=== PATIENT | male | born 1980 | race Caucasian/White ===

== ENCOUNTER 2018-04-18 02:58 | Emergency (ER) | payer SELFPAY ==
[2018-04-18 03:00] VITALS: BP 127/89; PULSE 103; RESP 18; TEMP 36.7; O2SAT 95
[2018-04-18] MEDS: Lactated Ringers 1,000 ML 1000 ML IV (03:15)
--- NOTE | 2018-04-18 03:20 | W.ED.GENAD ---
Discharge Plan Disposition Patient Disposition: HOME Condition: Good Discharge Details Chief Complaint: Abd Prob Clinical Impression: Influenza-like illness Primary Care Provider: Jai Ashford ED Provider: Shahab Fischer Home Meds and New Rx's Prescriptions: New albuterol sulfate [Ventolin HFA] 90 mcg/actuation Hfa Aerosol Inhaler 2 puff Inhalation Q4H PRN PRNQty: 8.5 RF: 0 Continue omeprazole magnesium [Prilosec OTC] 20 MG tablet,delayed release (DR/EC) 20 mg PO DAILY RF: 0 Discharge Instructions Instructions: Albuterol (By breathing), How to Use a Metered-Dose Inhaler and a Spacer (ED) Additional Instructions: This is likely viral in nature, possibly influenza. Rest and stay hydrated. Use inhaler as directed to help with cough and wheezing. Use Motrin or Tylenol for fever and pain. Follow-up with your physician next week if not feeling better. Return to ED for increased difficulty breathing, chest pain, confusion, persistent vomiting, other concerns. Stand Alone Forms: Work Release Referrals: Jai Ashford [Primary Care Provider] - Medical Decision Making Patient presenting with fever, cough, aches and intermittent flank pain as most prominent symptoms. He is afebrile here. Saturations are reasonable but he has wheezing throughout. He does have some right CVAT but has a benign abdomen otherwise. We will place an IV and start fluids. Check labs including urinalysis. Will obtain chest x-ray as well as stone study. Toradol for discomfort. DuoNeb for wheezing. Patient feels better after fluids and meds. Laboratory studies are unremarkable. White count is normal. Urinalysis is negative. Chest x-ray negative per my review and preliminary radiology read. Stone study negative per radiology. Possible that this is influenza-like illness given the constellation of symptoms despite lack of coryza. Will discharge home with albuterol inhaler and [id number] medications for symptomatic control. Rest and drink plenty of fluids. Follow-up with primary care next week. Return to ED if any worsening symptoms. Lab Data Lab results reviewed: Yes I reviewed the patient's lab results. HPI General Mode of arrival: ambulatory. Date/Time Provider Initiated Documentation: 04/18/18 03:15. Limitations to Documentation: no limitations. Information obtained by: patient. HPI Narrative: Patient presents to ED with flank pain, fever, cough for the last few days. Patient states symptoms started Monday. He was able to work on Monday but left early Monday. He has been taking TheraFlu thinking that maybe he was coming down with the flu. He does have a cough and body aches but no runny nose. He has had chest discomfort but he thinks is from congestion more than anything. He is intermittently had some right flank and abdominal pain. This comes and goes and he cannot really describe it well. He has had some vomiting and diarrhea. He has intermittent headaches. He denies urinary symptoms - no hematuria, frequency or dysuria. He has been unable to sleep because he is uncomfortable. He knew he could not go to work this morning, given how he felt so he came in for evaluation. Related Data Home Medications Medication Instructions Recorded Confirmed omeprazole magnesium [Prilosec OTC] 20 mg PO DAILY 06/19/17 04/18/18 albuterol sulfate [Ventolin HFA] 2 puff INHALATION Q4H PRN PRN #8.5 04/18/18 gm Previous Rx's Medication Instructions Recorded albuterol sulfate [Ventolin HFA] 2 puff INHALATION Q4H PRN PRN #8.5 04/18/18 gm Allergies Allergy/AdvReac Type Severity Reaction Status Date / Time No Known Allergies Allergy Unverified 04/18/18 03:04 General Stated Complaint: Abd Prob RASHAWN: 3 Review of Systems Constitutional Reports body ache(s), Reports chills, Reports fatigue, Reports fever(s), Reports headache(s), Denies lethargy, Reports malaise, Reports poor appetite and Denies weakness Eyes Denies eye discharge and Denies eye pain ENT Denies otalgia, Denies facial pain, Reports headache(s), Denies nasal congestion, Denies nasal discharge, Denies neck pain and Denies sore throat Cardiovascular Denies chest pain, Denies syncope, Denies pedal edema, Denies edema, Denies lightheadedness, Denies radiating jaw, neck or arm pain, Denies palpitations and Reports dyspnea (intermittent) Respiratory Reports chest congestion, Reports cough and Reports dyspnea (intermittent) Gastrointestinal Reports abdominal pain, Reports diarrhea, Reports nausea and Reports vomiting Genitourinary Denies hematuria, Denies difficulty urinating, Denies dysuria, Reports flank pain, Denies urinary frequency and Denies urinary urgency Musculoskeletal Denies back pain, Denies myalgias, Denies arthralgias, Denies joint swelling, Denies neck pain and Denies numbness Integumentary/Breasts Denies erythema and Denies rash Neurologic Denies syncope, Reports headache(s), Denies focal weakness, Denies numbness and Denies weakness Endocrine Reports fatigue and Denies palpitations PFSH Medical History Asthma (Chronic) GERD (gastroesophageal reflux disease) (Chronic) Social History Smoking/Tobacco Use Status: Current every day Surgical History S/P knee surgery (Inactive) Exam Const General: cooperative, comfortable and well developed Nutritional Appearance: well nourished Orientation: alert and oriented x3 HENMT Head: normocephalic and atraumatic Mouth: mucous membranes dry Eyes Conjunctivae: conjunctivae normal Neck Neck: normal visual inspection, trachea midline and supple Resp Effort & Inspection: normal respiratory effort Auscultation: no crackles, lung sounds not diminished, no rales, no rhonchi and wheezes Cardio Rate: regular rate Rhythm: regular rhythm Heart Sounds: S1 normal and S2 normal GI Inspection: normal to inspection Palpation: soft, not firm, no guarding and nontender Back/Spine/Pelvis Back: CVA tenderness (right) Skin General skin exam: no rashes or lesions noted Neuro General: alert, oriented x3, no focal motor deficits and CN's II-XI intact bilaterally Extrem General: normal to inspection, full ROM and no clubbing, cyanosis or edema Course Vital Signs Temperature 98.1 F 04/18/18 03:00 Pulse 103 H 04/18/18 03:00 Respiratory Rate 18 04/18/18 03:00 Blood Pressure 127/89 04/18/18 03:00 Pulse Oximetry 95 04/18/18 03:00 Temperature 98.1 F 04/18/18 03:00 Temperature Source Skin 04/18/18 03:00 Pulse 103 H 04/18/18 03:00 Respiratory Rate 18 04/18/18 03:00 Respiratory Effort Non-Labored 04/18/18 03:03 Blood Pressure 127/89 04/18/18 03:00 Blood Pressure Position Sitting 04/18/18 03:00 Pulse Oximetry 95 04/18/18 03:00 Oxygen Delivery Method Room Air 04/18/18 03:00 Oxygen Flow Rate 0 04/18/18 03:00 Pain Level 5 04/18/18 03:00
[2018-04-18 03:23] VITALS: RESP 4
[2018-04-18] MEDS: Ketorolac 15 MG/ML VIAL IVP (03:23)
[2018-04-18] MEDS: Albuterol/Ipratropium 3 ML UPD VIAL UPD (03:23)
[2018-04-18] MEDS: Normal Saline Flush 10 ML SYR IVP (03:25)
[2018-04-18 03:27] LABS: Lactate-non-spesis 0.8 mmol/L (0.6-1.4)
--- NOTE | 2018-04-18 03:36 | ED.GENADUL_ITS ---
Discharge Plan Disposition Patient Disposition: HOME Condition: Good Discharge Details Chief Complaint: Abd Prob Clinical Impression: Influenza-like illness Primary Care Provider: Jai Ashford ED Provider: Shahab Fischer Home Meds and New Rx's Prescriptions: New albuterol sulfate [Ventolin HFA] 90 mcg/actuation Hfa Aerosol Inhaler 2 puff Inhalation Q4H PRN PRNQty: 8.5 RF: 0 Continue omeprazole magnesium [Prilosec OTC] 20 MG tablet,delayed release (DR/EC) 20 mg PO DAILY RF: 0 Discharge Instructions Instructions: Albuterol (By breathing), How to Use a Metered-Dose Inhaler and a Spacer (ED) Additional Instructions: This is likely viral in nature, possibly influenza. Rest and stay hydrated. Use inhaler as directed to help with cough and wheezing. Use Motrin or Tylenol for fever and pain. Follow-up with your physician next week if not feeling better. Return to ED for increased difficulty breathing, chest pain, confusion , persistent vomiting, other concerns. Stand Alone Forms: Work Release Referrals: Jai Ashford [Primary Care Provider] - Medical Decision Making Patient presenting with fever, cough, aches and intermittent flank pain as most prominent symptoms. He is afebrile here. Saturations are reasonable but he has wheezing throughout. He does have some right CVAT but has a benign abdomen otherwise. We will place an IV and start fluids. Check labs including urinalysis. Will obtain chest x-ray as well as stone study. Toradol for discomfort. DuoNeb for wheezing. Patient feels better after fluids and meds. Laboratory studies are unremarkable. White count is normal. Urinalysis is negative. Chest x-ray negative per my review and preliminary radiology read. Stone study negative per radiology. Possible that this is influenza-like illness given the constellation of symptoms despite lack of coryza. Will discharge home with albuterol inhaler and [id number] medications for symptomatic control. Rest and drink plenty of fluids. Follow-up with primary care next week. Return to ED if any worsening symptoms. Lab Data Lab results reviewed: Yes I reviewed the patient's lab results. HPI General Mode of arrival: ambulatory . Date/Time Provider Initiated Documentation: 04/18/18 03:15 . Limitations to Documentation: no limitations . Information obtained by: patient . HPI Narrative: Patient presents to ED with flank pain, fever, cough for the last few days. Patient states symptoms started Monday. He was able to work on Monday but left early Monday. He has been taking TheraFlu thinking that maybe he was coming down with the flu. He does have a cough and body aches but no runny nose. He has had chest discomfort but he thinks is from congestion more than anything. He is intermittently had some right flank and abdominal pain. This comes and goes and he cannot really describe it well. He has had some vomiting and diarrhea. He has intermittent headaches. He denies urinary symptoms - no hematuria, frequency or dysuria. He has been unable to sleep because he is uncomfortable. He knew he could not go to work this morning, given how he felt so he came in for evaluation. Related Data Home Medications Medication Instructions Recorded Confirmed omeprazole magnesium [Prilosec OTC] 20 mg PO DAILY 06/19/17 04/18/18 albuterol sulfate [Ventolin HFA] 2 puff INHALATION Q4H PRN PRN #8.5 04/18/18 gm Previous Rx's Medication Instructions Recorded albuterol sulfate [Ventolin HFA] 2 puff INHALATION Q4H PRN PRN #8.5 04/18/18 gm Allergies Allergy/AdvReac Type Severity Reaction Status Date / Time No Known Allergies Allergy Unverified 04/18/18 03:04 General Stated Complaint: Abd Prob RASHAWN: 3 Review of Systems Constitutional Reports body ache(s), Reports chills, Reports fatigue, Reports fever(s), Reports headache(s), Denies lethargy, Reports malaise, Reports poor appetite and Denies weakness Eyes Denies eye discharge and Denies eye pain ENT Denies otalgia, Denies facial pain, Reports headache(s), Denies nasal congestion , Denies nasal discharge, Denies neck pain and Denies sore throat Cardiovascular Denies chest pain, Denies syncope, Denies pedal edema, Denies edema, Denies lightheadedness, Denies radiating jaw, neck or arm pain, Denies palpitations and Reports dyspnea (intermittent) Respiratory Reports chest congestion, Reports cough and Reports dyspnea (intermittent) Gastrointestinal Reports abdominal pain, Reports diarrhea, Reports nausea and Reports vomiting Genitourinary Denies hematuria, Denies difficulty urinating, Denies dysuria, Reports flank pain, Denies urinary frequency and Denies urinary urgency Musculoskeletal Denies back pain, Denies myalgias, Denies arthralgias, Denies joint swelling, Denies neck pain and Denies numbness Integumentary/Breasts Denies erythema and Denies rash Neurologic Denies syncope, Reports headache(s), Denies focal weakness, Denies numbness and Denies weakness Endocrine Reports fatigue and Denies palpitations PFSH Medical History Asthma (Chronic) GERD (gastroesophageal reflux disease) (Chronic) Social History Smoking/Tobacco Use Status: Current every day Surgical History S/P knee surgery (Inactive) Exam Const General: cooperative, comfortable and well developed Nutritional Appearance: well nourished Orientation: alert and oriented x3 HENMT Head: normocephalic and atraumatic Mouth: mucous membranes dry Eyes Conjunctivae: conjunctivae normal Neck Neck: normal visual inspection, trachea midline and supple Resp Effort & Inspection: normal respiratory effort Auscultation: no crackles, lung sounds not diminished, no rales, no rhonchi and wheezes Cardio Rate: regular rate Rhythm: regular rhythm Heart Sounds: S1 normal and S2 normal GI Inspection: normal to inspection Palpation: soft, not firm, no guarding and nontender Back/Spine/Pelvis Back: CVA tenderness (right) Skin General skin exam: no rashes or lesions noted Neuro General: alert, oriented x3, no focal motor deficits and CN's II-XI intact bilaterally Extrem General: normal to inspection, full ROM and no clubbing, cyanosis or edema Course Vital Signs Temperature 98.1 F 04/18/18 03:00 Pulse 103 H 04/18/18 03:00 Respiratory Rate 18 04/18/18 03:00 Blood Pressure 127/89 04/18/18 03:00 Pulse Oximetry 95 04/18/18 03:00 Temperature 98.1 F 04/18/18 03:00 Temperature Source Skin 04/18/18 03:00 Pulse 103 H 04/18/18 03:00 Respiratory Rate 18 04/18/18 03:00 Respiratory Effort Non-Labored 04/18/18 03:03 Blood Pressure 127/89 04/18/18 03:00 Blood Pressure Position Sitting 04/18/18 03:00 Pulse Oximetry 95 04/18/18 03:00 Oxygen Delivery Method Room Air 04/18/18 03:00 Oxygen Flow Rate 0 04/18/18 03:00 Pain Level 5 04/18/18 03:00
[2018-04-18 03:39] LABS: Abs Immature Grans 0.01 k/cumm (0.0-0.09); Absolute Basophil Count 0.03 k/cumm (0.0-0.2); Absolute Eosinophil Count 0.05 k/cumm (0.0-0.7); Absolute Lymphocyte Count 1.09 k/cumm (1.2-3.4); Absolute Monocyte Count 0.88 k/cumm (0.11-0.7); Absolute Neutrophil Count 3.78 k/cumm (1.2-6.7); Basophils % 0.5; Eosinophils % 0.9; HCT 48.5 % (40.0-50.0); HGB 16.7 g/dL (13.5-17.5); Immature Grans % 0.2; Lymphocytes % 18.7; Mean Corp. HGB Concentration 34.4 g/dL (32.0-36.0); Mean Corpuscular Hemoglobin 32.8 pg (27.0-33.0); Mean Corpuscular Volume 95.3 fL (80-95); Mean Platelet Volume 10.1 fL (8.0-11.0); Monocytes % 15.1; Neutrophils % 64.6; Platelet Count 184 x1000/uL (130-400); RBC 5.09 m/cumm (4.50-6.00); RBC Distribution Width 12.8 % (11.8-14.1); White Blood Cell Count 5.84 k/cumm (4.4-10.8)
--- NOTE | 2018-04-18 03:45 | DI.CT_ITS ---
SYMPTOMS/DIAGNOSIS: FEVER, RIGHT FLANK PAIN NONCONTRAST CT OF THE ABDOMEN AND PELVIS: No urinary tract calculi or hydronephrosis is seen. The bladder is mildly distended. There is a question of mild bladder wall thickening. The prostate is not significantly enlarged. The lung bases are clear. There is a question of mild fatty infiltration of the liver. The gallbladder, spleen, pancreas and adrenals are unremarkable. There are no inflammatory bowel changes or abnormal dilatation. The appendix appears normal. No mass or adenopathy is seen. The aorta is normal in diameter. There are mild degenerative disc changes at L5-S1. IMPRESSION: Question of mild bladder wall thickening. No evidence of urinary tract calculi or hydronephrosis.
[2018-04-18 03:49] LABS: ALT 102 U/L (12-78); AST 67 U/L (15-37); Albumin 3.9 g/dL (3.4-5.0); Alkaline Phosphatase 101 U/L (46-116); Anion Gap 11.8 mmol/L (3-11); BUN 7 mg/dL (7-18); Bilirubin, Total 0.4 mg/dL (0.2-1.0); CO2 25.2 mmol/L (21.0-32.0); CREATININE 0.87 mg/dL (0.70-1.30); Chloride 100 mmol/L (98-107); Glucose 100 mg/dL (70-100); Magnesium 1.8 mg/dL (1.8-2.4); Potassium 3.8 mmol/L (3.5-5.1); Sodium 137 mmol/L (136-145); Total Protein 7.6 g/dL (6.4-8.2)
--- NOTE | 2018-04-18 03:50 | DI.RAD_ITS ---
SYMPTOMS/DIAGNOSIS: COUGH, FEVER PA AND LATERAL CHEST: Comparison is made with May,. The cardiac and mediastinal contours have a normal appearance. The lungs are well inflated and clear. No infiltrate or effusion is seen. IMPRESSION: Negative chest x-ray.
[2018-04-18 03:59] LABS: Calcium 8.7 mg/dL (8.5-10.1); Troponin I < 0.02 ng/mL (0.00-0.06)
[2018-04-18] MEDS: Lactated Ringers 1,000 ML 200 ML IV (04:04)
--- NOTE | 2018-04-18 04:11 | DI.VRAD_ITS ---
EXAM: CT Abdomen and Pelvis Without Intravenous Contrast EXAM DATE/TIME: 04/18/2018 3:19 AM CLINICAL HISTORY: 38 years old, male; Pain and signs and symptoms; Fever; Other: R flank pain; Patient HX: R plank pain, fever, flu like symptoms TECHNIQUE: Axial computed tomography images of the abdomen and pelvis without intravenous contrast. All CT scans at this facility use at least one of these dose optimization techniques: automated exposure control; mA and/or kV adjustment per patient size (includes targeted exams where dose is matched to clinical indication); or iterative reconstruction. Coronal and sagittal reformatted images were created and reviewed. COMPARISON: No relevant prior studies available. FINDINGS: Lower thorax: No acute findings. ABDOMEN: Liver: Normal. No mass. Gallbladder and bile ducts: Normal. No calcified stones. No ductal dilation. Pancreas: Normal. No ductal dilation. Spleen: Normal. No splenomegaly. Adrenals: Normal. No mass. Kidneys and ureters: Normal. No hydronephrosis. Stomach and bowel: Colonic diverticulosis is present without evidence for inflammation. Appendix: No evidence of appendicitis. PELVIS: Bladder: The urinary bladder is questionably thickwalled. This may reflect incomplete distention. However correlation with UA is recommended to exclude cystitis. Reproductive: Unremarkable as visualized. ABDOMEN and PELVIS: Intraperitoneal space: Normal. No free air. No significant fluid collection. Bones/joints: No acute fracture. No dislocation. Soft tissues: Unremarkable. Vasculature: Normal. No abdominal aortic aneurysm. Lymph nodes: Normal. No enlarged lymph nodes. IMPRESSION: Equivocal cystitis. Dictated and Authenticated by: Avinash Quiñonez MD. Ordering:TOAN MUIR MD
--- NOTE | 2018-04-18 04:12 | DI.VRAD_ITS ---
EXAM: XR Chest, 2 Views EXAM DATE/TIME: 04/18/2018 3:19 AM CLINICAL HISTORY: 38 years old, male; Signs and symptoms; Cough and fever; Patient HX: R plank pain, fever, flu like symptoms TECHNIQUE: XR of the chest, 2 views. COMPARISON: CR CHEST 2 VIEWS PA,LAT 06/13/2012 11:26 AM FINDINGS: Lungs: Unremarkable. No consolidation. Pleural space: Unremarkable. No pleural effusion. No pneumothorax. Heart/Mediastinum: Unremarkable. No cardiomegaly. Bones/joints: Unremarkable. IMPRESSION: No acute findings. Dictated and Authenticated by: Avinash Quiñonez MD. Ordering:TOAN MUIR MD
[2018-04-18 04:25] LABS: Bilirubin Negative (Negative); Blood Negative (Negative); Clarity Clear; Glucose Negative (Negative); Ketones Negative (Negative); Leukocyte Esterase Negative (Negative); Nitrite Negative (Negative); Urobilinogen 0.2 EU/dL (Up TO 0.2)
[2018-04-18] MEDS: Inhaler, Assist Device 1 EACH MC (04:50)
[2018-04-18] MEDS: Albuterol HFA 8 GM 60 PUFF INH IH (04:50)
[2018-04-18 04:53] VITALS: BP 112/72; PULSE 85; RESP 18; TEMP 37.2; O2SAT 95
== END 2018-04-18 04:59 | disposition home or self-care (01) ==
LOC: ER 05:02
PROVIDERS: Emergency Provider Emergency Medicine; PCP Family Medicine
DX: J11.89 Influenza due to unidentified influenza virus with other manifestations (principal); R50.9 Fever, unspecified; R05 Cough; M79.10 Myalgia, unspecified site; R10.31 Right lower quadrant pain
CPT/HCPCS: 36415; 80053; 94640; 96361; 96374; 99284; 71046; 74176; 81003; 83605; 83735; 84484; 85025; 99285; J1885; J7620

== ENCOUNTER 2020-09-19 08:05 | Outpatient (REF) | payer BC, SELFPAY ==
[2020-09-18 22:05] LABS: ALT 87 U/L (16-63); AST 37 U/L (15-37); Albumin 4.3 g/dL (3.4-5.0); Alkaline Phosphatase 71 U/L (46-116); Anion Gap 10.7 mmol/L (3-11); BUN 16 mg/dL (7-18); Bilirubin, Total 0.5 mg/dL (0.2-1.0); CO2 28.3 mmol/L (21.0-32.0); CREATININE 0.9 mg/dL (0.70-1.30); Chloride 104 mmol/L (98-107); Glucose 80 mg/dL (74-106); Sodium 143 mmol/L (136-145); Total Protein 7.3 g/dL (6.4-8.2)
== END 2020-09-19 08:06 | disposition home or self-care (01) ==
LOC: NCHCN 08:05
PROVIDERS: PCP Family Medicine; Visit Provider Nurse Practitioner Family
DX: R10.9 Unspecified abdominal pain (principal)
CPT/HCPCS: 80053

== ENCOUNTER 2020-10-12 02:07 | Outpatient (CLI) | payer BC, SELFPAY ==
[2020-10-12 11:34] LABS: Calculated LDL 93 mg/dL (<100); Cholesterol 183 mg/dL (<200); HDL Cholesterol 49 mg/dL (40-60); Triglyceride 206 mg/dL (<150)
[2020-10-12 11:36] LABS: Hemoglobin A1C 5.3 % (<5.7)
== END 2020-10-12 02:08 | disposition home or self-care (01) ==
LOC: LOS 02:08
PROVIDERS: PCP Nurse Practitioner Family; Visit Provider Nurse Practitioner Family
DX: Z13.1 Encounter for screening for diabetes mellitus (principal); Z13.220 Encounter for screening for lipoid disorders
CPT/HCPCS: 36415; 80061; 83036

== ENCOUNTER 2021-01-05 10:20 | Outpatient (CLI) | payer BC, SELFPAY ==
[2021-01-05 12:23] LABS: Abs Immature Grans 0.01 10^3/uL (0.0-0.06); Absolute Basophil Count 0.06 10^3/uL (0.0-0.2); Absolute Eosinophil Count 0.12 10^3/uL (0.0-0.7); Absolute Lymphocyte Count 1.51 10^3/uL (1.2-3.4); Absolute Monocyte Count 0.71 10^3/uL (0.1-0.8); Absolute Neutrophil Count 3.06 10^3/uL (1.2-6.7); Basophils % 1.1; Eosinophils % 2.2; HCT 54.4 % (40.0-50.0); Immature Grans % 0.2; Lymphocytes % 27.6; MCH 31.6 pg (27.0-33.0); MCHC 33.1 % (32.0-36.0); MCV 95.6 fL (80-95); MPV 10.2 fL (8.0-11.0); Neutrophils % 55.9; Nucleated RBC 0 %; Platelet Count 278 10^3/uL (130-400); RBC 5.69 10^6/uL (4.36-5.78); RDW 12.5 % (11.8-14.1); RDW-SD 43.9 fL; WBC 5.47 10^3/uL (4.4-10.8)
[2021-01-05 12:40] LABS: ALT 85 U/L (16-63); AST 49 U/L (15-37); Albumin 4.2 g/dL (3.4-5.0); Alkaline Phosphatase 88 U/L (46-116); Anion Gap 7.6 mmol/L (3-11); BUN 6 mg/dL (7-18); Bilirubin, Total 0.4 mg/dL (0.2-1.0); CO2 30.4 mmol/L (21.0-32.0); Calcium 9.2 mg/dL (8.5-10.1); Chloride 107 mmol/L (98-107); Glucose 100 mg/dL (74-106); Potassium 4.5 mmol/L (3.5-5.1); Sodium 145 mmol/L (136-145); Total Protein 7.4 g/dL (6.4-8.2)
== END 2021-01-05 10:21 | disposition home or self-care (01) ==
LOC: LOS 10:21
PROVIDERS: PCP Nurse Practitioner Family; Referring Provider Nurse Practitioner Family; Visit Provider Nurse Practitioner Family
DX: R10.30 Lower abdominal pain, unspecified (principal)
CPT/HCPCS: 36415; 80053; 85025

== ENCOUNTER 2021-01-22 03:31 | Outpatient (CLI) | payer BC, SELFPAY ==
[2021-01-22 11:25] LABS: Source Nasal/Nares
[2021-01-22 13:49] LABS: COVID-19 PCR Negative (Negative)
== END 2021-01-22 03:32 | disposition home or self-care (01) ==
LOC: LBO 03:31
PROVIDERS: PCP Nurse Practitioner Family; Visit Provider Surgery
DX: Z20.822 Contact with and (suspected) exposure to COVID-19 (principal); Z01.818 Encounter for other preprocedural examination
CPT/HCPCS: 87635

== ENCOUNTER 2021-01-26 04:48 | Outpatient (CLI) | payer BC, SELFPAY ==
[2021-01-27 13:56] LABS: ANCA Interpretation Negative (Negative)
[2021-01-28 15:14] LABS: Tissue Transglutaminase Ab IgA <1.2 U/mL; Tissue Transglutaminase Ab IgG <1.2 U/mL
== END 2021-01-26 04:49 | disposition home or self-care (01) ==
LOC: LBO 04:48
PROVIDERS: PCP Nurse Practitioner Family; Visit Provider Surgery
DX: R10.32 Left lower quadrant pain (principal); R19.7 Diarrhea, unspecified; K63.9 Disease of intestine, unspecified; Z87.19 Personal history of other diseases of the digestive system
CPT/HCPCS: 36415; 86255; 83516

== ENCOUNTER 2021-01-26 09:24 | Day surgery (SDC) | payer BC, SELFPAY ==
[2021-01-26 09:30] VITALS: BP 134/92; PULSE 87; RESP 16; TEMP 36.6; O2SAT 100
--- NOTE | 2021-01-26 09:54 | W.ANESPRE ---
General Info Date of Service Date Performed: 01/26/21 Height: 5 ft 11 in Weight: 87.3 kg Body Mass Index (BMI): 26.8 Surgical Procedure: Operation Date: 01/26/21 10:35 Proposed Procedures Side Surgeon p Colonoscopy with biopsy Abril Jacobsen, DO Meds Allergies and Home Medications Allergies Allergy/AdvReac Type Severity Reaction Status Date / Time No Known Allergies Allergy Verified 01/26/21 09:40 Home Medication Medication Instructions Recorded albuterol sulfate 90 mcg/actuation 2 puff INHALATION Q4H PRN PRN #8.5 10/01/20 aerosol inhaler gm omeprazole magnesium 20 mg 20 mg PO DAILY #90 tab 10/01/20 tablet,delayed release ciprofloxacin HCl 500 mg tablet 500 mg PO BID #14 tab 01/05/21 bisacodyl 5 mg tablet,delayed 5 mg PO ONCE #4 tab 01/18/21 release lactobacillus combo no.11 15 1 cap PO DAILY 01/18/21 billion cell sprinkle capsule polyethylene glycol 3350 17 238 g PO ONCE #238 g 01/18/21 gram/dose oral powder Current Visit Medications: Current Medications Generic Name Dose Route Start Last Admin Trade Name Freq PRN Reason Stop Dose Admin Hyoscyamine Sulfate 0.125 mg 01/25/21 21:15 Hyoscyamine 0.125 Mg Sl/Oral/Chew SL DIRECTED PRN Ringer's Solution 1,000 mls @ 80 mls/hr 01/26/21 06:00 IV 02/21/21 23:59 INFUSION [facility] IV Miscellaneous Supplies 1 each 01/26/21 06:00 Iv Access IV 02/21/21 23:59 DIRECTED MICHEL Ondansetron HCl 4 mg 01/25/21 21:15 Ondansetron 4 Mg/2 Ml Vial IVP Q4H PRN PRN Nausea / Vomiting Sodium Chloride 0 ml 01/26/21 06:00 Normal Saline Flush 10 Ml Syr IV 02/21/21 23:59 PRN PRN Sodium Chloride 0 ml 01/26/21 06:00 Normal Saline 10 Ml Vial IJ 02/21/21 23:59 DIRECTED PRN Sterile Water 0 ml 01/26/21 06:00 Water,Injection,Sterile 10 Ml Vial IJ 02/21/21 23:59 DIRECTED PRN PFSH Active Problems Active Problems: Problem Status Onset Code 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 Colon wall thickening K63.9 LLQ abdominal pain R10.32 Acute diarrhea R19.7 Diverticulosis K57.90 Abdominal pain R10.9 Diastasis recti M62.08 Umbilical hernia K42.9 GERD (gastroesophageal reflux disease) K21.9 Asthma J45.909 Medical History Medical History Asthma Diastasis recti GERD (gastroesophageal reflux disease) Smoker Umbilical hernia Surgical History Surgical History S/P knee surgery Tobacco Smoking/Tobacco Use Status: Current every day Tobacco Type: cigarettes Tobacco: How many years used: 20 Passive smoking exposure: Yes Second hand exposure: Yes Alcohol Alcohol Intake: current Alcohol intake frequency: a few times a week Substance Use Substance use: Occasionally Substance use type: marijuana Vital Signs and Lab Results Vital Signs Most Recent Vital Signs in EMR: Most Recent Vital Signs Temp Pulse Resp BP Pulse Ox 36.6 C 87 16 134/92 H 100 01/26/21 09:30 01/26/21 09:30 01/26/21 09:30 01/26/21 09:30 01/26/21 09:30 Lab Results Blood Type / Crossmatch: No Data to Display Complete Blood Count: White Blood Count 5.47 10^3/uL (4.4-10.8) 01/05/21 10:41 01/05/21 Red Blood Count 5.69 10^6/uL (4.36-5.78) 01/05/21 10:41 01/05/21 Hemoglobin 18.0 g/dL (13.5-17.5) H 01/05/21 10:41 01/05/21 Hematocrit 54.4 % (40.0-50.0) H 01/05/21 10:41 01/05/21 Platelet Count 278 10^3/uL (130-400) 01/05/21 10:41 01/05/21 Complete Metabolic Panel: Sodium Level 145 mmol/L (136-145) 01/05/21 10:41 01/05/21 Potassium Level 4.5 mmol/L (3.5-5.1) 01/05/21 10:41 01/05/21 Chloride Level 107 mmol/L (98-107) 01/05/21 10:41 01/05/21 Carbon Dioxide Level 30.4 mmol/L (21.0-32.0) 01/05/21 10:41 01/05/21 Blood Urea Nitrogen 6 mg/dL (7-18) L 01/05/21 10:41 01/05/21 Creatinine 1.0 mg/dL (0.70-1.30) 01/05/21 10:41 01/05/21 Estimated GFR/1.73 m2 >= 60.00 (mL/min/1.73m2) 01/05/21 10:41 01/05/21 Calcium Level 9.2 mg/dL (8.5-10.1) 01/05/21 10:41 01/05/21 Albumin 4.2 g/dL (3.4-5.0) 01/05/21 10:41 01/05/21 Glucose Level 100 mg/dL (74-106) 01/05/21 10:41 01/05/21 Liver Function Panel: Alanine Aminotransferase (ALT/SGPT) 85 U/L (16-63) H 01/05/21 10:41 01/05/21 Aspartate Amino Transf (AST/SGOT) 49 U/L (15-37) H 01/05/21 10:41 01/05/21 Coagulation Panel: No Data to Display Cardiac Panel: No Data to Display Arterial Blood Gas: No Data to Display Venous Blood Gas: No Data to Display Pancreas Panel: No Data to Display Thyroid Panel: No Data to Display Infectious Disease: Coronavirus (COVID-19)(PCR) Negative (Negative) 01/22/21 09:01/22/21 Coronavirus 2019 Source Nasal/Nares 01/22/21 09:26 01/22/21 Blood Cultures: No Data to Display Toxicology Panel: No Data to Display Anesthesia Assessment and Plan Anesthesia History Personal History: No History of Anesthesia Complications Family History: No Family History of Anesthesia Complications Exercise Tolerance Exercise Tolerance: Metabolic Equivalents>4 Pertinent Negatives Pertinent Negatives: No Symptoms of GERD, No Major Cardiovascular Symptoms or Complaints and No Major Pulmonary Symptoms or Complaints Cardiac & Pulmonary Exam Cardiac Exam: Normal S1/S2 Heart Sounds Pulmonary Exam: Clear Bilateral Breath Sounds Airway Exam Known Difficult Airway: No Mallampati Class: 1 Mouth Opening: Normal (> 3cm) Thyromental Distance: Greater than 3 cm Neck Range of Motion: Full ROM Neck Circumference: Normal Teeth Condition: Normal Dentition ASA Classification ASA Score: ASA 2 Emergency Case?: No NPO Status NPO Status: NPO Clears >2 hours, Solids >8 hours Anesthesia Plan Resuscitation Status: Full Code Anesthesia Technique: General Anesthesia Airway Planned: Natural Airway Monitors Used: Standard Monitors
[2021-01-26] MEDS: Lactated Ringers 1,000 ML 80 ML IV (09:56)
[2021-01-26 10:00] VITALS: BMI 26.8
--- NOTE | 2021-01-26 10:15 | BOWEL_PTH ---
PATIENT: Zac Mathews LOC: [facility] U#:[id number] AGE/SX: 40/M ROOM: RE01/26/[address]: Abril Jacobsen : 1980 BED: DIS: 01/26/2021 SPEC #: [id number] RECD: 01/26/21 11:49 STATUS: ARNOLD RE #: [id number] LISA: 01/26/21 10:[address]: Abril Jacobsen DEPT: Surgical Specimen RECD BY: Karon Gardner ENTERED: 01/26/21 11:54 SP TYPE: Bowel OTHR DR: Kemal Menchaca, RESIN MIXER Tissues: 1 - BIOPSY BOWEL 2 - BIOPSY BOWEL 3 - BIOPSY BOWEL 4 - BIOPSY BOWEL 5 - BIOPSY BOWEL 6 - BIOPSY BOWEL 7 - BIOPSY BOWEL 8 - BIOPSY BOWEL Procedures: GROSS AND MICRO LEVEL 4 Comments: [id number]
[2021-01-26 11:00] VITALS: BP 104/68; PULSE 92; RESP 16; TEMP 36.4; O2SAT 94
--- NOTE | 2021-01-26 11:18 | W.ANESPOSTOP ---
Postoperative Evaluation Date, Time and Location Date Performed: 01/26/21 Time Performed: 11:18 Patient Location: Day Surgery Unit Vital Signs Most Recent Imported Vital Signs: Most Recent Vital Signs Temp Pulse Resp BP Pulse Ox 36.4 C L 92 H 16 104/68 94 01/26/21 11:00 01/26/21 11:00 01/26/21 11:00 01/26/21 11:00 01/26/21 11:00 Pain Score Most Recent Pain Score: Most Recent Pain Score Pain Level 0 01/26/21 11:00 Assessment Mental Status: Awake (Alert & Oriented to Patient Baseline) Airway and Respiratory Function: Patent airway with normal (patient baseline) respiratory exam Cardiovascular Function: Hemodynamically Stable Hydration Status: Adequately Hydrated Nausea & Vomiting: No Nausea or Vomiting Pain: Pt. Denies Any Pain Peripheral Nerve Block: Patient did not receive a nerve block
--- NOTE | 2021-01-26 11:19 | PDOC.DSDIS_ITS ---
Discharge Plan Disposition Patient Disposition: HOME Condition: Good Discharge Details Reason For Visit: colon scope Attending Provider: Abril Jacobsen Primary Care Provider: Kemal Menchaca Home Meds and New Rx's Prescriptions: Continued Probiotic 15 billion cell capsule, sprinkle 1 cap PO DAILY RF: 0 omeprazole magnesium [Prilosec OTC] 20 mg tablet,delayed release (DR/EC) 20 mg PO DAILY Qty: 90 RF: 4 albuterol sulfate [Ventolin HFA] 90 mcg/actuation HFA aerosol inhaler 2 puff Inhalation Q4H PRN PRN (Reason: asthma) Qty: 8.5 RF: 4 Discontinued ciprofloxacin HCl 500 mg tablet 500 mg PO BID Qty: 14 RF: 0 polyethylene glycol 3350 17 gram/dose powder 238 g PO ONCE Qty: 238 RF: 0 bisacodyl [Dulcolax (bisacodyl)] 5 mg tablet,delayed release (DR/EC) 5 mg PO ONCE Qty: 4 RF: 0 Discharge Instructions Additional Instructions: DSU Colonoscopy Post- Op Instructions Instructions for Everyone who is given Anesthesia: For your safety, please do the following for the next twenty-four (24) hours: *Do Not operate a motor vehicle (car, truck, motorcycle, etc.) *Do Not drink alcoholic beverages or use any recreational drugs for the first 24 hours or while taking pain medications. The medications in your body may have a reaction that can be dangerous. *Do Not make any important decisions or sign any important papers. Findings: diverticula- no active infections no signs of colitis multiple polyps-10 removed. My office will send you a letter with the results of the polyps in approximately 2 to 3 weeks. We should plan on repeating the colonoscopy in 1 3 years time, depending on the results of the problems. Follow up: 1. No lifting over 20 pounds or strenuous activity for the first 24 hours after your procedure. After 24 hours there are no restrictions on your activity but you may feel fatigued for a few days. 2. After you arrive home you may have a light meal and return to your normal diet as you can tolerate it without feeling sick to your stomach. 3. You may have a bloated, gaseous feeling in your belly (abdomen) after a colonoscopy. Passing gas and belching will help. Walking or lying down on your left side with your knees flexed may relieve the discomfort. 4. No aspirin or NSAIDs for 72 hours. Tylpema Call the office at [phone] (Office) or [phone] (Hospital) right away if you notice any of the following: a.Vomiting of blood or ?coffee ground stools?. b.Rectal bleeding 1Tbsp, blood clots or continuous bleeding. c.Severe belly (abdominal) pain. d.A hard distended belly (abdomen) and an inability to pass gas. 4. Please don?t expect to have a normal BM (bowel movement) for 2-3 days after your procedure. 5. If there are questions regarding the findings of your procedure, please contact your doctor 6. If you are unable to contact your doctor with a problem, contact the hospital at [phone]. 7. Continue all your regular medications unless directed otherwise. I understand the above instructions and have no questions. Signature of Patient or Adult Escort Name of Responsible Adult Escort Signature of Nurse Date/Time Activity:: see above Diet:: see above Discharge Orders Discharge Orders: Discharge Order (Routine); Ordered 01/25/21 Ordered By: Abril Jacobsen DS: Diagnosis Discharge Diagnosis (1) Diverticulosis: Status: Acute (2) Colorectal polyps: Status: Acute
--- NOTE | 2021-01-26 11:31 | W.COLOREPORT ---
Colonoscopy Report Date of procedure: 01/26/21 Pre-op diagnosis general: LLQ pain/diverticulitis/hx of colitis Post-op diagnosis procedure note: other (polyps X10 ) Procedure: bx and mult polyps removed Surgeon: Abril Jacobsen Anesthesia Type: General:No Airway Estimated blood loss (mL): 1 Pathology: other Complications: None Disposition: same day Prep: Miralax/Dulcolax Retraction Time: 25 Procedure Description: After informed consent was obtained the patient was taken to the procedure room and placed in a left decubitous position. Monitors were applied and a time out was done. The patients name, date of , procedure, allergies to medications and metal in their body was reviewed. The patient was then sedated. Once sedated and comfortable a rectal exam was done. External exam was normal. Internal exam revealed a normal sphincter tone and no palpable masses. The scope was then introduced and retrofelexed. No internal hemorrhoids were identified. The scope was then advanced to the cecum w/ out difficulty. The TI and appendiceal orifice were identified. The scope was then advanced into the terminal ileum. This had normal villous architecture. Biopsies were taken. Biopsies were taken at the cecum, 80 cm, 60 cm, 30 cm. The mucosa appears pink and healthy. There is no signs of any colitis or infections. He does have diverticula that extend all the way over to the right colon; they are small and not very numerous. There are no signs of bleeding or infection. He does have multiple prior polyps removed. He had x6 polyps at 30 cm that are removed with cold biopsy forceps. These were viewed under NBP, and appeared to be adenomatous. He had 2 polyps at 20 cm. These were both removed with a hot polypectomy snare. All specimen is retrieved and no bleeding is noted. He time had 2 polyps in the rectum. These are both removed with a hot polypectomy forcep. All specimen is retrieved and no bleeding is noted. Patient should have a repeat repeated in 1 to 3 years time, depending on pathology. The scope was then slowly retracted over 25 minutes back into the rectum. The scope was removed and the patient was woken up and taken back to Same day surgery in stable condition. The patient tolerated the procedure well and there were no immediate complications. Follow up: The patient should follow up in 1-3 years unless they develop changes in bowel habits or other new gastrointestinal complaints.
[2021-01-26 11:35] VITALS: BP 99/72; PULSE 79; RESP 16; TEMP 36.4; O2SAT 95
== END 2021-01-26 11:55 | disposition home or self-care (01) ==
PROVIDERS: PCP Nurse Practitioner Family; Visit Provider Surgery
PROC: 0DJD8ZZ Inspection of Lower Intestinal Tract, Via Natural or Artificial Opening Endoscopic (ICD-10-PCS; CPT 45378; principal; 2021-01-26 10:30)
DX: K57.30 Diverticulosis of large intestine without perforation or abscess without bleeding (principal); K63.5 Polyp of colon; K62.1 Rectal polyp; Z86.010 Personal history of colon polyps; Z87.19 Personal history of other diseases of the digestive system
CPT/HCPCS: 45385; 45384; 45380; 88305; J2704

== ENCOUNTER → 2021-04-06 08:52 | Outpatient (CLI) | payer BC, SELFPAY ==
--- NOTE | 2021-04-06 09:15 | DI.RAD_ITS ---
Exam(s) XR CHEST 2V PA LATERAL EXAM: XR CHEST 2V PA LATERAL CLINICAL HISTORY: family h/o lung ca, chronic cough,r05.3 TECHNIQUE: 2D digital imaging was performed. COMPARISON: CT CT renal colic wo from 04/18/2018 CR XR CHEST 2V PA LATERAL from 04/18/[address] renal colic wo from 04/18/2018 CR XR CHEST 2V PA LATERAL from 04/18/2018 FINDINGS: MEDIASTINUM: Normal. HEART: Normal. PULMONARY VASCULATURE: Normal. LUNGS: Mild hyperinflation and mild scarring, otherwise clear. PLEURAL SPACE: No pleural effusion or pneumothorax. BONE:Unremarkable for age. IMPRESSION: No acute abnormality. DATA REPOSITORY: RADIATION DOSE DELIVERED:
== END ==
PROVIDERS: PCP Nurse Practitioner Family; Visit Provider Nurse Practitioner Family
DX: R05.3 Chronic cough (principal); Z80.2 Family history of malignant neoplasm of other respiratory and intrathoracic organs
CPT/HCPCS: 71046

== ENCOUNTER 2021-10-21 10:13 | Emergency (ER) | payer BC, SELFPAY ==
[2021-10-21 10:16] VITALS: BP 136/94; PULSE 101; RESP 16; TEMP 36.9; O2SAT 97
--- NOTE | 2021-10-21 10:25 | W.ED.GENAD ---
Discharge Plan Disposition Patient Disposition: HOME Condition: Improving Discharge Details Clinical Impression: Acute diverticulitis Primary Care Provider: Kemal Menchaca ED Provider: Robson Cisneros Home Meds and New Rx's Prescriptions: New amoxicillin-pot clavulanate 875-125 mg tablet 1 tab PO BID 10 Days Qty: 20 0RF Continued Probiotic 15 billion cell capsule, sprinkle 1 cap PO DAILY Rx Instructions: do not crush/chew/cut; swallow whole OR may open and sprinkle in cold drink/food albuterol sulfate [Ventolin HFA] 90 mcg/actuation HFA aerosol inhaler 2 puff Inhalation Q4H PRN PRN (Reason: asthma) Qty: 8.5 4RF Rx Instructions: 2 puffs every 4 hours as needed for shortness of breath or cough omeprazole magnesium [Prilosec OTC] 20 mg tablet,delayed release (DR/EC) 20 mg PO DAILY Qty: 90 3RF Discharge Instructions Instructions: Diverticulitis (ED), Diverticulitis Diet (ED) Additional Instructions: Home to rest. Take antibiotics as prescribed until gone. Follow-up with regular doctor for recheck in 2 to 3 weeks time. See enclosed instructions. Stand Alone Forms: Work Release Medical Decision Making 41-year-old male presents on referral from local clinic. He reports having history of left lower quadrant abdominal pain which was treated with antibiotic last year with resolution. Now yesterday with gradual onset of left lower quadrant bowel pain is worse with movement, constant, radiates to his testicle. Did not notice change to urine. He has had some nausea but no significant prolonged emesis. Had watery stool this morning. Patient arrives afebrile, with elevated pulse, exam that reveals upper quadrant abdominal tenderness. Differential diagnosis includes diverticulitis, renal colic. IV access was established, patient given fluids and parenteral analgesia. Referred for laboratory testing occluding urinalysis. Patient has no significant hematuria. His white blood cell count is 11.8 with hematocrit 45 and platelets 255. Chemistries CT reveals acute diverticulitis. She formal report. Patient improving with fluids and medications. He is appropriate for trial of outpatient treatment with oral medication. Discussed with him home management as well as indication to seek reevaluation. HPI General Mode of arrival: ambulatory. Date/Time Provider Initiated Documentation: 10/21/21 10:22. Limitations to Documentation: no limitations. Information obtained by: patient. History of Present Illness 41 year old M presents to the emergency department with the chief complaint of Lower abd pain x1 day, described as moderate and similar to prior episodes, Quality is described as dull, and is localized to the abdomen. Patient reports radiation to back and reports radiation to (Testicle left). Patient started experiencing this hour(s) and it has been constant. No relieving factors improve symptom(s), No exacerbating factors reported . Patient notes denies fever/chills. Patient did receive the following treatments prior to arrival, none Related Data Home Medications Medication Instructions Recorded Confirmed albuterol sulfate 90 mcg/actuation 2 puff inhalation Q4H PRN PRN 10/01/20 10/04/21 aerosol inhaler (Ventolin HFA) asthma #8.5 grams lactobacillus combo no.11 15 1 cap PO DAILY 01/18/21 10/04/21 billion cell sprinkle capsule (Probiotic) omeprazole magnesium 20 mg 20 mg PO DAILY #90 tabs 10/13/21 10/21/21 tablet,delayed release (Prilosec OTC) amoxicillin 875 mg-potassium 1 tab PO BID 10 days #20 tabs 10/21/21 clavulanate 125 mg tablet Previous Rx's Medication Instructions Recorded albuterol sulfate 90 mcg/actuation 2 puff inhalation Q4H PRN PRN 10/01/20 aerosol inhaler (Ventolin HFA) asthma #8.5 grams omeprazole magnesium 20 mg 20 mg PO DAILY #90 tabs 10/13/21 tablet,delayed release (Prilosec OTC) amoxicillin 875 mg-potassium 1 tab PO BID 10 days #20 tabs 10/21/21 clavulanate 125 mg tablet Allergies Allergy/AdvReac Type Severity Reaction Status Date / Time No Known Allergies Allergy Verified 10/21/21 09:40 General Stated Complaint: Abd Prob RASHAWN: 3 Review of Systems Narrative: Denies recent illness, no Resp/chest complaints. 7 systems reviewed PFSH All Active Problems Tinea versicolor (Acute) Smoker (Acute) Diverticula of colon (Acute) Acute diarrhea (Acute) Diverticulosis (Acute) Diastasis recti (Acute) Umbilical hernia (Acute) GERD (gastroesophageal reflux disease) (Chronic) Asthma (Chronic) Medical History Colon wall thickening Hyperplastic colon polyp Removed during scope. Surgical History History of colonoscopy with polypectomy (~01/26/21) S/P knee surgery Family History Mother , 72 Cancer Lung Father No problems noted. Sister Cancer Breast Sister , 49 Cancer Lung Social History Smoking/Tobacco Use Status: Current every day Tobacco Type: cigarettes Tobacco: How many years used: 23 Quit status: considering quitting Second Hand Exposure: Yes Smoking risk assessment performed?: Yes Alcohol Intake: current Alcohol Intake frequency: a few times a week Alcohol type: beer and hard liquor Drug use: Occasionally Substance use type: marijuana Caregiver/Support person: No Household members: spouse and significant other Housing: apartment Communication Needs: None Do you need help understanding health information?: Rarely Pets and animals: Yes Pets and animals: dog(s) Sexually active: Yes Do you think of yourself as: straight/heterosexual Current gender identity: male What is your relationship status?: How often do you talk on the phone with friends or family?: three or more times per week How often do you get together with friends or relatives?: twice per week How often do you attend congregational or latter day services?: decline to answer Do you belong to any clubs or organized social groups?: no Panel score (0-1 are the most socially isolated patients): 2 What type of physical activity do you participate in: walking Frequency: 3-4 times per week [place]/Uatsdin: No preference Seatbelt use: always Helmet use: Yes Helmet use: always Do you feel safe at home: Yes Do you feel safe in your relationship?: Yes Exam Narrative Exam Narrative: GEN: awake, alert, oriented 3. Pleasant, well groomed, interactive. HEAD: Normocephalic, atraumatic ENT: Mucous membranes moist, oropharynx unremarkable, External ear exam unremarkable EYES: PERRL, EOMI NECK: Full ROM, no NAVNEET, no menigismus CHEST/RESP: Nontender, clear to auscultation bilateral, no wheeze/rhonchi/rales CARDIOVASCULAR: RRR, no murmur, rub shell. 2+ Rad pulse bilateral ABDOMEN: Soft, tender in the left lower quadrant, mild rebound present no mass. +Bowel sounds. Testes descended bilaterally EXT: Full ROM, no edema, no rash Neuro: Grossly normal neurologic exam, conversant, interactive. Psych: Speech fluent, thoughts congruent, affect normal Course Vital Signs Vital signs: Vital Signs Temperature 36.9 C 10/21/21 10:16 Pulse 101 H 10/21/21 10:16 Respiratory Rate 16 10/21/21 10:16 Blood Pressure 136/94 H 10/21/21 10:16 Pulse Oximetry 97 10/21/21 10:16 Temperature 36.9 C 10/21/21 10:16 Pulse 101 H 10/21/21 10:16 Respiratory Rate 16 10/21/21 10:16 Respiratory Effort 10/21/21 10:21 Blood Pressure 136/94 H 10/21/21 10:16 Pulse Oximetry 97 10/21/21 10:16 Pain Level 10 10/21/21 10:21
[2021-10-21 10:48] LABS: Bilirubin Negative (Negative); Blood Trace-intact (Negative); Clarity Clear (Clear); Glucose Negative (Negative); Ketones Negative (Negative); Leukocyte Esterase Small (Negative); Nitrite Negative (Negative); Specific Gravity >= 1.030 (1.005-1.025); Urobilinogen 0.2 EU/dL (Up TO 0.2); pH 6.5 (5-8)
[2021-10-21] MEDS: Normal Saline 1,000 ML 125 ML IV (10:50)
[2021-10-21] MEDS: Ketorolac 15 MG/ML VIAL IVP (10:50)
[2021-10-21 11:00] LABS: Bacteria Rare HPF (Negative); C & S Indicated? Yes; Casts Negative LPF (Negative); Crystals Negative HPF (Negative); Epithelial Cells Few HPF (Negative); Mucus Trace (Negative); RBC 0-2 HPF (0-2)
--- NOTE | 2021-10-21 11:00 | DI.CT_ITS ---
Exam(s) CT ABDOMEN PELVIS WO EXAM: CT ABDOMEN PELVIS WO CLINICAL HISTORY: LLQ abd pain, hx diverticuli. TECHNIQUE: Imaging Protocol: Axial computed tomography images with coronal and sagittal reformatted images were created and reviewed CONTRAST MATERIAL: Intravenous: none Oral: None COMPARISON: CT CT ABDOMEN PELVIS W from 01/06/2021 FINDINGS: VISUALIZED LUNG BASES: No nodules nor pleural effusions evident. ABDOMEN: There is no ascites. LIVER: There are no obvious focal hepatic lesions evident of this noninfused study. GALLBLADDER/BILIARY: No obvious gallbladder pathology. CBD is not dilated. PANCREAS: No evidence of pancreatic mass nor dilatation of the pancreatic duct. SPLEEN: Spleen is not enlarged. No obvious intrasplenic lesions. ADRENALS: There are no significant adrenal masses. KIDNEYS:Right kidney appears unremarkable. Again noted is a solitary small 2 millimeter nonobstructi ve calculus in the upper pole of the opposite-left kidney. No hydronephrosis nor hydroureter. No so lid renal masses.. ABDOMINAL AORTA: Abdominal aorta is not enlarged. LYMPH NODES: There is no retroperitoneal nor paraaortic adenopathy. ABDOMINAL WALL: No evidence of significant anterior abdominal wall nor inguinal hernia. GI: There is no evidence of bowel obstruction, free air, nor abscess. PELVIS: LYMPH NODES: There is no intrapelvic nor inguinal adenopathy. GI: No evidence of appendicitis.There is diverticulitis evident in the upper sigmoid. One tiny air b ubble noted off the anterior wall, this in the region of prominent perisigmoid streaking and probably a small micro perforation. There is no organized abscess. There is no free fluid in the dependent aspect of the pelvis. URINARY BLADDER: Uniformly thickened wall but may be due to under distension. REPRODUCTIVE: Status unremarkable. OSSEOUS: No significant osseous lesions. IMPRESSION: 1. Findings are consistent with acute upper sigmoid diverticulitis. Prominent surrounding streaking. No abscess evident at this time and there is no fluid in the dependent aspect pelvis. No gas in th e portal venous system nor within the urinary bladder. No evidence of hepatic abscess. 2. 3. RADIATION DOSE DELIVERED: 916.91mGy.cm Total DLP DATA REPOSITORY: All CT scans at this facility are submitted to the National Radiology Data Registry (NRDR) Dose Index Registry (DIR) with the [employer] ([employer]). RADIATION OPTIMIZATION: All CT scans at this facility use at least one of these dose optimization te chniques: automated exposure control; mA and/or kV adjustment per patient size (includes targeted exa ms where dose is matched to clinical indication); or iterative reconstruction.
[2021-10-21 11:35] LABS: Lactate 0.6 mmol/L (0.6-1.4)
[2021-10-21 11:36] LABS: Abs Immature Grans 0.04 10^3/uL (0.0-0.06); Absolute Basophil Count 0.05 10^3/uL (0.0-0.2); Absolute Eosinophil Count 0.11 10^3/uL (0.0-0.7); Absolute Lymphocyte Count 1.91 10^3/uL (1.2-3.4); Absolute Monocyte Count 1.14 10^3/uL (0.1-0.8); Basophils % 0.4; Eosinophils % 0.9; HCT 45.1 % (40.0-50.0); HGB 15.2 g/dL (13.5-17.5); Immature Grans % 0.3; Lymphocytes % 16.1; MCH 31.7 pg (27.0-33.0); MCHC 33.7 % (32.0-36.0); MCV 94 fL (80-95); MPV 9.5 fL (8.0-11.0); Monocytes % 9.6; Neutrophils % 72.7; Platelet Count 255 10^3/uL (130-400); RDW-SD 41.4 fL; WBC 11.88 10^3/uL (4.4-10.8)
[2021-10-21 11:37] LABS: Absolute Neutrophil Count 8.64 10^3/uL (1.2-6.7)
[2021-10-21 11:52] LABS: ALT 31 U/L (16-63); AST 13 U/L (15-37); Albumin 3.7 g/dL (3.4-5.0); Alkaline Phosphatase 75 U/L (46-116); Anion Gap 10.6 mmol/L (3-11); BUN 9 mg/dL (7-18); Bilirubin, Total 0.8 mg/dL (0.2-1.0); CO2 26.4 mmol/L (21.0-32.0); CREATININE 0.9 mg/dL (0.70-1.30); Calcium 8.5 mg/dL (8.5-10.1); Chloride 103 mmol/L (98-107); Glucose 96 mg/dL (74-106); Potassium 3.7 mmol/L (3.5-5.1); Sodium 140 mmol/L (136-145); Total Protein 7.2 g/dL (6.4-8.2)
[2021-10-21] MEDS: Amoxicillin 875/Clav. 125 TAB PO (12:06)
== END 2021-10-21 12:13 | disposition home or self-care (01) ==
PROVIDERS: Emergency Provider Emergency Medicine; PCP Nurse Practitioner Family
DX: K57.92 Diverticulitis of intestine, part unspecified, without perforation or abscess without bleeding (principal); R10.32 Left lower quadrant pain
CPT/HCPCS: 36415; 80053; 96361; 96374; 99284; 74176; 81003; 81015; 83605; 85025; 87086; J1885

== ENCOUNTER 2022-02-19 10:19 | Inpatient (IN) | payer BC, SELFPAY ==
[2022-02-19] VITALS (25 sets, daily range): BP systolic 124–153; BP diastolic 68–92; PULSE 81–115; RESP 11–20; TEMP 36.6–37.2; O2SAT 88–99
--- NOTE | 2022-02-19 10:30 | RT.EKG_ITS ---
APPROVED REPORT Exam: Resting ECG Reason for Exam: chest pain Patient Location: E HR:117 bpm ECG Measurements Heart Rate 117 AXIS GA 148 P 60 QRSd 97 QRS 49 QT 326 T 54 QTc 456 Conclusion Sinus tachycardia...rate> 99
--- NOTE | 2022-02-19 10:32 | ED.GENADUL_ITS ---
Discharge Plan Disposition Patient Disposition: [facility] INPATIENT Condition: Fair Discharge Details Clinical Impression: Multiple fractures of ribs Admit Date/Time: 02/19/22 14:00 Admit Provider: Wolf Daniels Attending Provider: Wolf Daniels Primary Care Provider: Kemal Menchaca ED Provider: Jeet Espinoza Medical Decision Making Patient presenting to the emergency department for chief complaint of fall with injury to left chest wall. Patient denies any other injury or trauma. Physical exam shows patient in acute painful distress holding left chest wall. Patient has present lung sounds throughout with some crackles in the bases that I attrib bozena more to patient's heavy smoking habit. No spinal tenderness but significant tenderness to palpation of the anterior left chest wall with no tenderness to the sternum or right side of the chest. We will perform radiological imaging to evaluate for fracture. Due to pain being directly over cardiac region we will also perform labs and EKG for any suspicion of cardiac contusion or underlying cardiac nature to the discomfort. Pending results we will give patient pain medication. Please see physician interpretation for full interpretation of EKG but on my review patient is in sinus rhythm with sinus tachycardia with a rate of 117 otherwise no acute STEMI findings are noted. We will continue to monitor. Reviewed patient's labs and patient does have elevated WBC along with hemoglobin neutrophils and monocytes. I do believe elevated WBCs could be from acute trauma but given also elevated hemoglobin but a slight and tachycardia will give patient some IV fluids pending results. Troponin is negative, patient does have slightly elevated anion gap of 11.2 and total protein is high at 9. Reviewed x- ray imaging that shows acute fractures to the left ribs fourth fifth and 6 with opacity in the left base that may represent contusion or atelectasis. Patient reassessed and continues to endorse significant amount of pain and discomfort and spite of aggressive medication delivery. Patient received a total of 1 mg of hydromorphone, lidocaine, and Toradol. After hydromorphone nurses did notice slightly lower oxygen sats so patient was placed on nasal cannula oxygen as patient was slightly sedate but not somnolent. Spoke to general surgeon in regards to patient's care which he agreed to have patient admitted for pain control and consideration of plating of the ribs. Patient was in agreement with this plan of care HPI General Mode of arrival: ambulatory . Date/Time Provider Initiated Documentation: 02/19/22 10:25 . Limitations to Documentation: no limitations . Information obtained by: patient, family and RN notes reviewed . History of Present Illness 42 year old M presents to the emergency department with the chief complaint of fall with trauma to left chest , described as severe, with intensity rated at 10. Quality is described as sharp, and is localized to the chest. Patient reports no radiation. Patient started experiencing this hour(s) (9) and it has been constant. No relieving factors improve symptom(s), No exacerbating factors reported . Patient notes chest pain and shortness of breath. Patient did receive the following treatments prior to arrival, none Related Data Home Medications Medication Instructions Recorded Confirmed albuterol sulfate 90 mcg/actuation 2 puff inhalation Q4H PRN PRN 10/01/20 02/19/22 aerosol inhaler (Ventolin HFA) asthma #8.5 grams lactobacillus combo no.11 15 1 cap PO DAILY 01/18/21 02/19/22 billion cell sprinkle capsule (Probiotic) omeprazole magnesium 20 mg 20 mg PO DAILY #90 tabs 10/13/21 02/19/22 tablet,delayed release (Prilosec OTC) Previous Rx's Medication Instructions Recorded albuterol sulfate 90 mcg/actuation 2 puff inhalation Q4H PRN PRN 10/01/20 aerosol inhaler (Ventolin HFA) asthma #8.5 grams omeprazole magnesium 20 mg 20 mg PO DAILY #90 tabs 10/13/21 tablet,delayed release (Prilosec OTC) Allergies Allergy/AdvReac Type Severity Reaction Status Date / Time No Known Allergies Allergy Verified 11/15/21 16:11 General Stated Complaint: Chest/Rib RASHAWN: 3 Review of Systems Constitutional Constitutional: Denies fever(s) and Denies headache(s) ENT Ears, Nose, Mouth, and Throat: Denies dizziness, Denies headache(s) and Denies neck pain Cardiovascular Cardiovascular: Reports chest pain, Denies syncope and Reports dyspnea Respiratory Respiratory: Denies cough, Denies hemoptysis, Reports pain on inspiration and Reports dyspnea Gastrointestinal Gastrointestinal: Denies abdominal pain and Denies vomiting Musculoskeletal Musculoskeletal: Denies back pain and Denies neck pain Integumentary/Breasts Skin/Breast: Denies unusual bruising and Denies wounds Neurologic Neurologic: Denies dizziness, Denies syncope and Denies headache(s) PFSH All Active Problems Multiple fractures of ribs (Acute) Diverticulitis (Chronic) Tinea versicolor (Acute) Smoker (Acute) Diverticula of colon (Acute) Acute diarrhea (Acute) Diverticulosis (Acute) Diastasis recti (Acute) Umbilical hernia (Acute) GERD (gastroesophageal reflux disease) (Chronic) Asthma (Chronic) Medical History Colon wall thickening Hyperplastic colon polyp Removed during scope. Surgical History History of colonoscopy with polypectomy (~01/26/21) S/P knee surgery Family History Mother , 72 Cancer Lung Father No problems noted. Sister Cancer Breast Sister , 49 Cancer Lung Social History Smoking/Tobacco Use Status: Current every day Tobacco Type: cigarettes Tobacco: How many years used: 23 Quit status: considering quitting Second Hand Exposure: Yes Smoking risk assessment performed?: Yes Alcohol Intake: current Alcohol Intake frequency: 3 or more drinks per day Alcohol type: beer and hard liquor Drug use: Occasionally Substance use type: marijuana Caregiver/Support person: No Household members: spouse and significant other Housing: apartment Communication Needs: None Do you need help understanding health information?: Rarely Pets and animals: Yes Pets and animals: dog(s) Sexually active: Yes Do you think of yourself as: straight/heterosexual Current gender identity: male What is your relationship status?: How often do you talk on the phone with friends or family?: three or more times per week How often do you get together with friends or relatives?: twice per week How often do you attend episcopalian or anabaptism services?: decline to answer Do you belong to any clubs or organized social groups?: no Panel score (0-1 are the most socially isolated patients): 2 What type of physical activity do you participate in: walking Frequency: 3-4 times per week Yamilka/Episcopal: No preference Seatbelt use: always Helmet use: Yes Helmet use: always Do you feel safe at home: Yes Do you feel safe in your relationship?: Yes Exam Const General: cooperative, acute distress moderate and severe; not respiratory and not diaphoretic Nutritional Appearance: average body habitus Orientation: alert, awake and oriented x3 Limitations: mental status not altered Neck Neck: normal visual inspection, full ROM, trachea midline, supple and no anterior neck swelling Chest Chest: normal inspection of the chest, localized rib tenderness with anteroposterior compression left involving the 4th rib, involving the 5th rib, involving the 6th rib, involving the 7th rib and involving the 8th rib and tenderness (Left anterior chest wall) no sternal xxx and no xiphoid process xxx Resp Effort & Inspection: normal respiratory effort and able to speak in complete sentences Auscultation: crackles bilaterally at the base Cardio Jugular venous pressure: no JVD Palpation: normal PMI Rate: regular rate Rhythm: regular rhythm Heart Sounds: S1 normal, S2 normal, no click, no gallops, no murmurs and no rubs Bruits: no carotid bruits Skin General skin exam: no rashes or lesions noted Neuro General: patient alert, patient awake, patient oriented x3, tone normal and moves all extremities Course Vital Signs Vital signs: Vital Signs Temperature 36.8 C 02/19/22 10:27 Pulse 90 02/19/22 10:27 Respiratory Rate 20 02/19/22 10:27 Blood Pressure 126/68 02/19/22 10:27 Pulse Oximetry 99 02/19/22 10:27 Temperature 36.8 C 02/19/22 10:27 Temperature Source Temporal Artery Scan 02/19/22 10:27 Pulse 90 02/19/22 10:27 Respiratory Rate 20 02/19/22 10:27 Respiratory Effort Non-Labored 02/19/22 10:31 Blood Pressure 126/68 02/19/22 10:27 Blood Pressure Position Sitting 02/19/22 10:27 Pulse Oximetry 99 02/19/22 10:27 Oxygen Delivery Method Room Air 02/19/22 10:27 Oxygen Flow Rate 0 02/19/22 10:27 Pain Level 10 02/19/22 10:27 PAWSS Have you Been Recently Intoxicated or Drunk Within the Last 30 days?: No Have you Ever Experienced Previous Episodes of Alcohol Withdrawal?: No Have you ever Experienced Withdrawal Seizures?: No Have you ever Experienced Delirium Tremens(DT)s?: No Have you ever undergone Alcohol Rehabilitation Treatment (i.e, inpt ot outpatient treatment programs)?: No Have you ever Experienced Blackouts?: No Have you ever Combined Alcohol with other Downers within the last 90 days?: No Have you ever Combined Alcohol with any other Substance of Abuse during the last 90 days?: No Positive Blood Alcohol level on Presentation? [PCS.BAL]: No Evidence of Increased Autonomic Activity (i.e. HR>120, tremor, sweating, agitation, nausea)?: No Result: 0
[2022-02-19] MEDS: Ketorolac 30 MG/ML VIAL IVP (10:41)
[2022-02-19 10:42] LABS: Abs Immature Grans 0.04 10^3/uL (0.0-0.06); Absolute Basophil Count 0.07 10^3/uL (0.0-0.2); Absolute Lymphocyte Count 2.52 10^3/uL (1.2-3.4); Absolute Monocyte Count 1.03 10^3/uL (0.1-0.8); Basophils % 0.5; Eosinophils % 0.6; HCT 52.3 % (40.0-50.0); HGB 17.7 g/dL (13.5-17.5); Immature Grans % 0.3; Lymphocytes % 17.9; MCH 31.8 pg (27.0-33.0); MCHC 33.8 % (32.0-36.0); MCV 94 fL (80-95); MPV 9.3 fL (8.0-11.0); Monocytes % 7.3; Neutrophils % 73.4; Platelet Count 366 10^3/uL (130-400); RBC 5.57 10^6/uL (4.36-5.78); RDW 11.9 % (11.8-14.1); WBC 14.07 10^3/uL (4.4-10.8)
[2022-02-19] MEDS: HYDROmorphone 2 MG/ML SYR 0.5 MG IVP ×2 (10:42→11:26)
[2022-02-19 10:45] LABS: Absolute Eosinophil Count 0.08 10^3/uL (0.0-0.7); Absolute Neutrophil Count 10.33 10^3/uL (1.2-6.7)
[2022-02-19] MEDS: Lidocaine 5% Patch 1 PATCH TP (10:52)
[2022-02-19 11:02] LABS: ALT 45 U/L (16-63); AST 25 U/L (15-37); Albumin 4.7 g/dL (3.4-5.0); Alkaline Phosphatase 88 U/L (46-116); Anion Gap 11.2 mmol/L (3-11); BUN 8 mg/dL (7-18); Bilirubin, Total 0.5 mg/dL (0.2-1.0); CO2 28.8 mmol/L (21.0-32.0); CREATININE 0.8 mg/dL (0.70-1.30); Calcium 9.1 mg/dL (8.5-10.1); Chloride 100 mmol/L (98-107); Estimated GFR 111.92 (mL/min/1.73m2); Glucose 98 mg/dL (74-106); Potassium 4.3 mmol/L (3.5-5.1); Sodium 140 mmol/L (136-145); Troponin I < 50 ng/L (<or=60)
--- NOTE | 2022-02-19 11:15 | DI.RAD_ITS ---
Exam(s) XR RIBS LT W PA LAT CHEST EXAM: XR RIBS LT W PA LAT CHEST CLINICAL HISTORY: anterior chest wall injury. TECHNIQUE: 2D digital imaging was performed. COMPARISON: CR XR CHEST 2V PA LATERAL from 04/06/2021 FINDINGS: Five views: Three views left rib cage: There are contiguous displaced fractures of the left 5th, 6, and 7th ribs. No rib lesions identified. Chest x-ray: There is platelike atelectasis in left lung base. No large lung contusion. No pneumoth orax. Right lung is clear. No pleural effusions. IMPRESSION: There are displaced fractures of the left 5th, 6, and 7th ribs. There is ipsilateral platelike atele ctasis in the left lung base. There is no pneumothorax evident at this time. DATA REPOSITORY: RADIATION DOSE DELIVERED:
--- NOTE | 2022-02-19 11:22 | DI.VRAD_ITS ---
PROCEDURE INFORMATION: Exam: XR Left Ribs Exam date and time: 02/19/2022 11:02 AM Age: 42 years old Clinical indication: Injury or trauma; Fall; Blunt trauma (contusions or hematomas); Rib area; Injury date: 02/19/22; Injury details: Patient fell up the stairs this morning. Patient in severe pain. anterior rib pain lateral to left nipple area. Lidocane patch over area of pain. TECHNIQUE: Imaging protocol: Radiologic exam of the Left ribs. Views: 2 views. COMPARISON: CR XR CHEST 2V PA LATERAL 04/06/2021 3:29 PM FINDINGS: Bones/joints: Displaced 4th, 5th, 6th left rib fractures. Lungs: Opacity in the left base may represent contusion or atelectasis.. Soft tissues: Normal. IMPRESSION: 1. Displaced 4th, 5th, 6th left rib fractures. 2. Opacity in the left base may represent contusion or atelectasis.. PROCEDURE INFORMATION: Exam: XR Chest Exam date and time: 02/19/2022 11:02 AM Age: 42 years old Clinical indication: Injury or trauma; Fall; Blunt trauma (contusions or hematomas); Rib area; Injury date: 02/19/22; Injury details: Patient fell up the stairs this morning. Patient in severe pain. anterior rib pain lateral to left nipple area. Lidocane patch over area of pain. TECHNIQUE: Imaging protocol: Radiologic exam of the chest. Views: 2 views. COMPARISON: CR XR CHEST 2V PA LATERAL 04/06/2021 3:29 PM FINDINGS: Lungs: Opacity in the left base may represent contusion or atelectasis.. Pleural spaces: Unremarkable. No pleural effusion. No pneumothorax. Heart/Mediastinum: Unremarkable. No cardiomegaly. Bones/joints: Displaced 4th, 5th, 6th left rib fractures. IMPRESSION: 1. Displaced 4th, 5th, 6th left rib fractures. 2. Opacity in the left base may represent contusion or atelectasis.. Dictated and Authenticated by: Eufemia Chau MD. Ordering:ANGELIC Marcano MD
[2022-02-19] MEDS: Normal Saline 1,000 ML 1000 ML IV (11:27)
--- NOTE | 2022-02-19 11:30 | DI.CT_ITS ---
Exam(s) CT CHEST WO EXAM: CT CHEST WO CLINICAL HISTORY: rib fractures. TECHNIQUE: Multi planar reconstructions were performed. CONTRAST MATERIAL: None COMPARISON: Chest x-ray earlier same date. FINDINGS: CHEST: LUNGS: There is a left 5th rib fracture without displacement. There is a subjacent mildly displaced fracture of the 6th rib as well as a mildly displaced fracture of the 7th rib. There is some subcuta neous air over this area but no pneumothorax. Some mild increased markings in left lung base are not ed but no large lung contusion or pleural effusion evident. Mild increased markings are noted in the right upper lobe. No pleural effusions on either side. No pneumothorax. No focal findings in the trachea and mainstem bronchi. MEDIASTINUM: There are no sternal fractures nor mediastinal hematoma evident. Visualized thyroid unr emarkable.No obvious axillary adenopathy CARDIAC: Heart size is normal. There is no pericardial effusion.Caliber of the thoracic aorta is wit hin normal limits. VISUALIZED UPPER ABDOMEN:No significant findings. OSSEOUS: No significant osseous lesions.Left rib fractures as above. No other fractures evident.. IMPRESSION: 1. There are fractures of the left 5th, 6, and 7th ribs as described above. 2. There mild ipsilateral left lung findings. There is no pneumothorax nor pleural effusion. RADIATION DOSE DELIVERED: 550.6mGy.cm Total DLP DATA REPOSITORY: All CT scans at this facility are submitted to the National Radiology Data Registry (NRDR) Dose Index Registry (DIR) with the [employer] (A[employer]). RADIATION OPTIMIZATION: All CT scans at this facility use at least one of these dose optimization te chniques: automated exposure control; mA and/or kV adjustment per patient size (includes targeted exa ms where dose is matched to clinical indication); or iterative reconstruction.
--- NOTE | 2022-02-19 12:20 | HPE_ITS ---
Date of service: 02/19/22 Time of Service: 12:20 History of Present Illness History of Present Illness Chief Complaint: left chest pain Narrative: Zac is a 42-year-old male who tripped last night and fell onto a chair. He felt immediate pain on the left chest wall. The pain increased through the night, he came to the emergency department today. He underwent chest x-ray that demonstrated multiple left-sided rib fractures. [facility] All Active Problems Multiple fractures of ribs (Acute) Diverticulitis (Chronic) Tinea versicolor (Acute) Smoker (Acute) Diverticula of colon (Acute) Acute diarrhea (Acute) Diverticulosis (Acute) Diastasis recti (Acute) Umbilical hernia (Acute) GERD (gastroesophageal reflux disease) (Chronic) Asthma (Chronic) Medical History Colon wall thickening Hyperplastic colon polyp Removed during scope. Surgical History History of colonoscopy with polypectomy (~01/26/21) S/P knee surgery Family History Mother , 72 Cancer Lung Father No problems noted. Sister Cancer Breast Sister , 49 Cancer Lung Social History Smoking/Tobacco Use Status: Current every day Tobacco Type: cigarettes Tobacco: How many years used: 23 Quit status: considering quitting Second Hand Exposure: Yes Smoking risk assessment performed?: Yes Alcohol Intake: current Alcohol Intake frequency: 3 or more drinks per day Alcohol type: beer and hard liquor Drug use: Occasionally Substance use type: marijuana Caregiver/Support person: No Household members: spouse and significant other Housing: apartment Communication Needs: None Do you need help understanding health information?: Rarely Pets and animals: Yes Pets and animals: dog(s) Sexually active: Yes Do you think of yourself as: straight/heterosexual Current gender identity: male What is your relationship status?: How often do you talk on the phone with friends or family?: three or more times per week How often do you get together with friends or relatives?: twice per week How often do you attend congregational or sabianist services?: decline to answer Do you belong to any clubs or organized social groups?: no Panel score (0-1 are the most socially isolated patients): 2 What type of physical activity do you participate in: walking Frequency: 3-4 times per week Yamilka/Protestant: No preference Seatbelt use: always Helmet use: Yes Helmet use: always Do you feel safe at home: Yes Do you feel safe in your relationship?: Yes Meds Allergies and Home Medications Allergies Allergy/AdvReac Type Severity Reaction Status Date / Time No Known Allergies Allergy Verified 11/15/21 16:11 Home Medications Medication Instructions Recorded Confirmed Type albuterol sulfate 90 mcg/actuation 2 puff inhalation Q4H PRN PRN 10/01/20 02/19/22 Rx aerosol inhaler (Ventolin HFA) asthma #8.5 grams lactobacillus combo no.11 15 1 cap PO DAILY 01/18/21 02/19/22 History billion cell sprinkle capsule (Probiotic) omeprazole magnesium 20 mg 20 mg PO DAILY #90 tabs 10/13/21 02/19/22 Rx tablet,delayed release (Prilosec OTC) Exam Const General: cooperative, healthy appearing, in distress and anxious Orientation: awake and oriented x3 Eyes General: appearance normal, both eyes and all related structures Conjunctivae: conjunctivae normal Sclera: sclerae normal Chest Chest: crepitus and localized rib tenderness with anteroposterior compression Chest/axillae images: 1. Tenderness Resp Effort & Inspection: normal respiratory effort, able to speak in complete sentences, no cough and no use of accessory muscles Auscultation: clear to auscultation bilaterally Cardio Jugular venous pressure: no JVD Rate: regular rate Rhythm: regular rhythm Heart Sounds: S1 normal and S2 normal GI Inspection: non-distended Palpation: soft, no guarding, no hernias and nontender Auscultation: normal bowel sounds Skin General skin exam: normal turgor Neuro General: patient alert, patient awake and patient oriented x3 Cognition: normal cognition Extrem Right lower extremity: no edema Left lower extremity: no edema Psych Attitude: cooperative Results Labs Result diagrams: 02/19/22 10:30 02/19/22 10:30 Labs: Laboratory Results - last 24 hr 02/19/22 02/19/22 10:30 10:30 WBC 14.07 H RBC 5.57 Hgb 17.7 H Hct 52.3 H MCV 94 MCH 31.8 MCHC 33.8 RDW 11.9 Plt Count 366 MPV 9.3 Immature Gran % 0.3 Neutrophils % 73.4 Lymphocytes % 17.9 Monocytes % 7.3 Eosinophils % 0.6 Basophils % 0.5 Nucleated RBC % 0.0 Absolute Neutrophils 10.33 H Absolute Lymphocytes 2.52 Absolute Monocytes 1.03 H Absolute Eosinophils 0.08 Absolute Basophils 0.07 Sodium 140 Potassium 4.3 Chloride 100 Carbon Dioxide 28.8 Anion Gap 11.2 H BUN 8 Creatinine 0.8 Est GFR (CKD-EPI 2020) 111.92 Glucose 98 Calcium 9.1 Total Bilirubin 0.5 AST 25 ALT 45 Alkaline Phosphatase 88 Troponin I < 50 Total Protein 9.0 H Albumin 4.7 Last Vital Signs Temp 98.2 F 02/19/22 10:27 Pulse 115 H 02/19/22 11:00 Resp 14 02/19/22 11:20 BP 129/86 02/19/22 11:00 Pulse Ox 88 L 02/19/22 11:20 PAWSS Have you Been Recently Intoxicated or Drunk Within the Last 30 days?: No Have you Ever Experienced Previous Episodes of Alcohol Withdrawal?: No Have you ever Experienced Withdrawal Seizures?: No Have you ever Experienced Delirium Tremens(DT)s?: No Have you ever undergone Alcohol Rehabilitation Treatment (i.e, inpt ot outpatient treatment programs)?: No Have you ever Experienced Blackouts?: No Have you ever Combined Alcohol with other Downers within the last 90 days?: No Have you ever Combined Alcohol with any other Substance of Abuse during the last 90 days?: No Positive Blood Alcohol level on Presentation? [PCS.BAL]: No Evidence of Increased Autonomic Activity (i.e. HR>120, tremor, sweating, agitation, nausea)?: No Result: 0
--- NOTE | 2022-02-19 12:22 | DI.VRAD_ITS ---
PROCEDURE INFORMATION: Exam: CT Chest Without Contrast; Diagnostic Exam date and time: 02/19/2022 12:06 PM Age: 42 years old Clinical indication: Injury or trauma; Fall; Blunt trauma (contusions or hematomas); Injury date: 02/19/22 TECHNIQUE: Imaging protocol: Diagnostic computed tomography of the chest without contrast. 3D rendering (Not supervised by radiologist): MIP and/or 3D reconstructed images were created by the technologist. Radiation optimization: All CT scans at this facility use at least one of these dose optimization techniques: automated exposure control; mA and/or kV adjustment per patient size (includes targeted exams where dose is matched to clinical indication); or iterative reconstruction. COMPARISON: CR XR RIBS LT W PA LAT CHEST 02/19/2022 11:02 AM FINDINGS: Lungs: Mild ground-glass opacities in the right middle lobe and both lower lobes may represent contusion or atelectasis.. Pleural spaces: No significant pneumothorax identified. Heart: Unremarkable. No cardiomegaly. No pericardial effusion. Lymph nodes: Unremarkable. No enlarged lymph nodes. Vasculature: Unremarkable. No aortic aneurysm. Kidneys and ureters: Nonobstructing left renal calculus Bones/joints: Minimally displaced left lateral 5th rib fracture. Displaced left lateral 6th and 7th rib fractures. Soft tissues: Subcutaneous emphysema in the extra thoracic soft tissues IMPRESSION: 1. Minimally displaced left lateral 5th rib fracture. Displaced left lateral 6th and 7th rib fractures. 2. No significant pneumothorax identified. 3. Mild ground-glass opacities in the right middle lobe and both lower lobes may represent contusion or atelectasis.. Dictated and Authenticated by: Eufemia Chau MD. Ordering:ANGELIC Marcano MD
[2022-02-19] MEDS: Bupivacaine 0.5% Pres-Free 30 ML VIAL (12:32)
--- NOTE | 2022-02-19 12:45 | W.ANESNERVE ---
Nerve Block Single Injection Procedure Date and Time Date Performed: 02/19/22 Procedure Start: 12:32 Location Where Procedure Performed Procedure Location: Emergency Department Reason Performed: Acute Pain Management Pain Diagnosis: Chest Pain and Rib Pain Requesting Provider: Jeet Espinoza Timeout Performed Timeout Performed: Yes Monitoring Used ECG, Blood Pressure, SpO2 and See EMR for corresponding vital signs Sterility Sterility: Hand Hygiene, Surgical Cap, Surgical Mask, Sterile Gloves and Chlorhexidine Sedation Given During Procedure Sedation Given (Indicate Dose Given): No Sedation given Patient Mental Status Patient Mental Status: Awake Nerve Block 1st Nerve Block: Laterality: Left Block Type: Erector Spinae (Lower) Needle / Catheter Used: 100mm SonoPlex II Local Anesthetic Bolus (Indicate Dose Given): Lidocaine used for local infiltration of skin, Injected in 3-5ml increments after negative blood aspiration, Bupivacaine 0.5% Dose:: 25 and Exparel Dose:: 10ml Additives (Indicate Dose Given): None Ultrasound: Sterile probe cover and gel used Ultrasound Image Saved?: No Nerve Stimulator: Not Used Paresthesia: None Post Procedure Pain score (0-10): 0 Procedure Tolerated: No Complications and Patient tolerated well Procedure Outcome: Successful Procedure Comment: Pain 10/10. Block completed and pt. able to deep breathe, is now mobile and pain 0/10. Performed By: Victorino Roa
[2022-02-19 14:15] LABS: Source Nasal/Nares
--- NOTE | 2022-02-19 14:18 | HPE_ITS ---
Date of service: 01/26/21 Time of Service: 11:32 Assessment and Plan Assessment and plan (1) Multiple fractures of ribs: Status: Acute Assessment and plan: I reviewed his chest imaging, and that there are multiple left-sided rib fractures. Anatomically, there is a favorable position for open reduction and internal fixation. However, there are minimally displaced, and I suspect they would heal well without intervention. He does have a fair amount of pain, but so far, he has not seen much in the way of multimodal regimen. I will talk with the anesthesia team today, and see if they can help with neuraxial blockade. We can reassess his pain over the next day and decide if there is any role for rib stabilization History of Present Illness History of Present Illness Chief Complaint: Left chest wall pain Consults Consult date: 02/19/22 Narrative: Zac Mathews is a 42-year-old male who fell last night and struck the left side of his chest on a chair. He felt pain in the area. The pain increased through today, and he came to the emergency department for evaluation. Chest x-rays demonstrated multiple left-sided rib fractures. There was no evidence of pneumothorax or hemothorax. Review of Systems Constitutional Constitutional: Reports system reviewed and no additional complaints, except as documented Eyes Eyes: Reports system reviewed and no additional complaints, except as documented ENT Ears, Nose, Mouth, and Throat: Reports system reviewed and no additional complaints, except as documented Cardiovascular Cardiovascular: Reports system reviewed and no additional complaints, except as documented Respiratory Respiratory: Reports cough, Reports pain on inspiration and Reports pain with cough Gastrointestinal Gastrointestinal: Denies abdominal pain and Denies bloating Genitourinary Genitourinary: Reports system reviewed and no additional complaints, except as documented Musculoskeletal Musculoskeletal: Reports back pain and Reports stiffness Neurologic Neurologic: Reports system reviewed and no additional complaints, except as documented Endocrine Endocrine: Reports system reviewed and no additional complaints, except as documented Hematologic/Lymphatic Hematologic/Lymphatic: Denies easy bleeding PFSH All Active Problems Multiple fractures of ribs (Acute) Diverticulitis (Chronic) Tinea versicolor (Acute) Smoker (Acute) Diverticula of colon (Acute) Acute diarrhea (Acute) Diverticulosis (Acute) Diastasis recti (Acute) Umbilical hernia (Acute) GERD (gastroesophageal reflux disease) (Chronic) Asthma (Chronic) Medical History Colon wall thickening Hyperplastic colon polyp Removed during scope. Surgical History History of colonoscopy with polypectomy (~01/26/21) S/P knee surgery Family History Mother , 72 Cancer Lung Father No problems noted. Sister Cancer Breast Sister , 49 Cancer Lung Social History Smoking/Tobacco Use Status: Current every day Tobacco Type: cigarettes Tobacco: How many years used: 23 Quit status: considering quitting Second Hand Exposure: Yes Smoking risk assessment performed?: Yes Alcohol Intake: current Alcohol Intake frequency: 3 or more drinks per day Alcohol type: beer and hard liquor Drug use: Occasionally Substance use type: marijuana Caregiver/Support person: No Household members: spouse and significant other Housing: apartment Communication Needs: None Do you need help understanding health information?: Rarely Pets and animals: Yes Pets and animals: dog(s) Sexually active: Yes Do you think of yourself as: straight/heterosexual Current gender identity: male What is your relationship status?: How often do you talk on the phone with friends or family?: three or more times per week How often do you get together with friends or relatives?: twice per week How often do you attend mandaeism or episcopal services?: decline to answer Do you belong to any clubs or organized social groups?: no Panel score (0-1 are the most socially isolated patients): 2 What type of physical activity do you participate in: walking Frequency: 3-4 times per week Yamilka/Jehovah'S Witness: No preference Seatbelt use: always Helmet use: Yes Helmet use: always Do you feel safe at home: Yes Do you feel safe in your relationship?: Yes Meds Allergies and Home Medications Allergies Allergy/AdvReac Type Severity Reaction Status Date / Time No Known Allergies Allergy Verified 11/15/21 16:11 Home Medications Medication Instructions Recorded Confirmed Type albuterol sulfate 90 mcg/actuation 2 puff inhalation Q4H PRN PRN 10/01/20 02/19/22 Rx aerosol inhaler (Ventolin HFA) asthma #8.5 grams lactobacillus combo no.11 15 1 cap PO DAILY 01/18/21 02/19/22 History billion cell sprinkle capsule (Probiotic) omeprazole magnesium 20 mg 20 mg PO DAILY #90 tabs 10/13/21 02/19/22 Rx tablet,delayed release (Prilosec OTC) Exam Const General: cooperative, healthy appearing and comfortable Orientation: awake and oriented x3 Eyes General: appearance normal, both eyes and all related structures Conjunctivae: conjunctivae normal Sclera: sclerae normal Chest Chest: localized rib tenderness with anteroposterior compression and tenderness Chest/axillae images: 1. Tenderness Resp Effort & Inspection: decreased respiratory effort, no tracheal deviation and no use of accessory muscles Auscultation: diminished lung sounds Cardio Jugular venous pressure: no JVD Rate: regular rate Rhythm: regular rhythm Heart Sounds: S1 normal and S2 normal GI Inspection: non-distended Palpation: soft, no guarding, no hernias and nontender Auscultation: normal bowel sounds Skin General skin exam: normal turgor Neuro General: patient alert, patient awake and patient oriented x3 Cognition: normal cognition Extrem Right lower extremity: no edema Left lower extremity: no edema Results Labs Result diagrams: 02/19/22 10:30 02/19/22 10:30 Labs: Laboratory Results - last 24 hr 02/19/22 02/19/22 02/19/22 10:30 10:30 14:13 WBC 14.07 H RBC 5.57 Hgb 17.7 H Hct 52.3 H MCV 94 MCH 31.8 MCHC 33.8 RDW 11.9 Plt Count 366 MPV 9.3 Immature Gran % 0.3 Neutrophils % 73.4 Lymphocytes % 17.9 Monocytes % 7.3 Eosinophils % 0.6 Basophils % 0.5 Nucleated RBC % 0.0 Absolute Neutrophils 10.33 H Absolute Lymphocytes 2.52 Absolute Monocytes 1.03 H Absolute Eosinophils 0.08 Absolute Basophils 0.07 Sodium 140 Potassium 4.3 Chloride 100 Carbon Dioxide 28.8 Anion Gap 11.2 H BUN 8 Creatinine 0.8 Est GFR (CKD-EPI 2020) 111.92 Glucose 98 Calcium 9.1 Total Bilirubin 0.5 AST 25 ALT 45 Alkaline Phosphatase 88 Troponin I < 50 Total Protein 9.0 H Albumin 4.7 COVID-19 Source Nasal/Nares Last Vital Signs Temp 98.2 F 10/01/22 10:27 Pulse 88 02/19/22 13:40 Resp 13 02/19/22 13:40 BP 136/75 02/19/22 13:40 Pulse Ox 91 L 02/19/22 13:40 PAWSS Have you Been Recently Intoxicated or Drunk Within the Last 30 days?: No Have you Ever Experienced Previous Episodes of Alcohol Withdrawal?: No Have you ever Experienced Withdrawal Seizures?: No Have you ever Experienced Delirium Tremens(DT)s?: No Have you ever undergone Alcohol Rehabilitation Treatment (i.e, inpt ot outpatient treatment programs)?: No Have you ever Experienced Blackouts?: No Have you ever Combined Alcohol with other Downers within the last 90 days?: No Have you ever Combined Alcohol with any other Substance of Abuse during the last 90 days?: No Positive Blood Alcohol level on Presentation? [PCS.BAL]: No Evidence of Increased Autonomic Activity (i.e. HR>120, tremor, sweating, agitation, nausea)?: No Result: 0
[2022-02-19] MEDS: MORPHine 2 MG/ML SYR IVP ×3 (15:17→23:38)
[2022-02-19] MEDS: Normal Saline Flush 10 ML SYR IVP ×2 (15:18→19:25)
[2022-02-19] MEDS: Enoxaparin 40 MG/0.4 ML SYR SC (16:22)
[2022-02-19] MEDS: Acetaminophen 500 MG TAB 1000 MG PO ×2 (16:22→22:38)
[2022-02-19 17:12] LABS: COVID-19 PCR Negative (Negative)
[2022-02-19] MEDS: Cyclobenzaprine 10 MG TAB PO (19:23)
[2022-02-20 01:42] VITALS: O2SAT 93
[2022-02-20] MEDS: Acetaminophen 500 MG TAB 1000 MG PO ×4 (04:32→21:03)
[2022-02-20] MEDS: MORPHine 2 MG/ML SYR IVP ×2 (04:32→08:05)
[2022-02-20] MEDS: Cyclobenzaprine 10 MG TAB PO ×3 (04:40→17:14)
[2022-02-20] MEDS: Normal Saline Flush 10 ML SYR IVP ×3 (04:41→22:50)
[2022-02-20 07:18] VITALS: BP 136/94; PULSE 92; RESP 18; TEMP 37; O2SAT 94
[2022-02-20] MEDS: Psyllium PKT 1 EACH PO (08:05)
--- NOTE | 2022-02-20 10:07 | W.PM.PROGNOT ---
Date of Service Date of service: 02/20/22 Time of Service: 10:08 Assessment and Plan Assessment and plan (1) Multiple fractures of ribs: Status: Acute Assessment and plan: We can put the lidocaine patches back on today, and I will add some Neurontin. Unless he makes some improvement in the next 24 hours, my recommendation would be for surgical fixation of rib fractures Subjective Subjective Interval history since last seen: He has some improvement after rib blocks yesterday, but has been experiencing more discomfort through the early part of this morning. He has had some relief with the Flexeril, and not much difference with intravenous morphine. Overall, his incentive spirometry has decreased and his coughing is quite limited and splinted Exam Chest Other: Chest wall is more tender along the left anterior axillary line this morning. There is mild ecchymosis. I do not appreciate any crepitus. Resp Effort & Inspection: able to speak in complete sentences, decreased respiratory effort and no tracheal deviation Auscultation: bronchovesicular breath sounds Objective Last Vital Signs Temp 98.6 F 02/20/22 07:18 Pulse 92 H 02/20/22 07:18 Resp 18 02/20/22 07:18 BP 136/94 H 02/20/22 07:18 Pulse Ox 94 02/20/22 07:18 Laboratory Results - last 24 hr 02/19/22 02/19/22 02/19/22 10:30 10:30 14:13 WBC 14.07 H RBC 5.57 Hgb 17.7 H Hct 52.3 H MCV 94 MCH 31.8 MCHC 33.8 RDW 11.9 Plt Count 366 MPV 9.3 Immature Gran % 0.3 Neutrophils % 73.4 Lymphocytes % 17.9 Monocytes % 7.3 Eosinophils % 0.6 Basophils % 0.5 Nucleated RBC % 0.0 Absolute Neutrophils 10.33 H Absolute Lymphocytes 2.52 Absolute Monocytes 1.03 H Absolute Eosinophils 0.08 Absolute Basophils 0.07 Sodium 140 Potassium 4.3 Chloride 100 Carbon Dioxide 28.8 Anion Gap 11.2 H BUN 8 Creatinine 0.8 Est GFR (CKD-EPI 2020) 111.92 Glucose 98 Calcium 9.1 Total Bilirubin 0.5 AST 25 ALT 45 Alkaline Phosphatase 88 Troponin I < 50 Total Protein 9.0 H Albumin 4.7 COVID-19 Source Nasal/Nares SARS-CoV-2 (PCR) Negative PAWSS Have you Been Recently Intoxicated or Drunk Within the Last 30 days?: No Have you Ever Experienced Previous Episodes of Alcohol Withdrawal?: No Have you ever Experienced Withdrawal Seizures?: No Have you ever Experienced Delirium Tremens(DT)s?: No Have you ever undergone Alcohol Rehabilitation Treatment (i.e, inpt ot outpatient treatment programs)?: No Have you ever Experienced Blackouts?: No Have you ever Combined Alcohol with other Downers within the last 90 days?: No Have you ever Combined Alcohol with any other Substance of Abuse during the last 90 days?: No Positive Blood Alcohol level on Presentation? [PCS.BAL]: No Evidence of Increased Autonomic Activity (i.e. HR>120, tremor, sweating, agitation, nausea)?: No Result: 0
[2022-02-20] MEDS: HYDROmorphone 2 MG TAB PO ×3 (10:30→21:04)
[2022-02-20] MEDS: Lidocaine 5% Patch 1 PATCH TP (10:31)
--- NOTE | 2022-02-20 12:11 | PDOC.CMIN ---
- If Service Date Differs Date of service: 02/20/22 Time of Service: 12:11 Care Management Initial Assess REASON FOR HOSPITALIZATION:: multiple rib fractures PAST MEDICAL HISTORY/PAST SURGICAL HISTORY:: All Active Problems. Multiple fractures of ribs (Acute). Diverticulitis (Chronic). Tinea versicolor (Acute). Smoker (Acute). Diverticula of colon (Acute). Acute diarrhea (Acute). Diverticulosis (Acute). Diastasis recti (Acute). Umbilical hernia (Acute). GERD (gastroesophageal reflux disease) (Chronic). Asthma (Chronic). Medical History. Colon wall thickening. Hyperplastic colon polyp. Removed during scope. Surgical History. History of colonoscopy with polypectomy (~01/26/21). S/P knee surgery PREVIOUS FUNCTIONAL STATUS/SOCIAL/FAMILY SUPPORTS:: Zac lives in [place] with his , Pati. Their children are adults, and no longer live with them. 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 He is independent at baseline. CURRENT FUNCTIONAL STATUS:: Zac was sitting up in bed when CM met with him. His was in the room visiting. Zac stated that he is still in pain, although it is better controlled now than it was earlier today. He stated that per MD, he will likely have surgery tomorrow to stabilize the rib fractures. He is agreeable with this plan. His stated that she will need documentation to submit to her insurance plan, and CM advised her to call medical records. She stated that they are both currently out of work, which is stressful. CM will continue to follow. ADVANCE DIRECTIVES:: None on file. Has patient been provided with info about the portal/API?: Yes Did the patient sign up for the portal?: Yes (active) CODE STATUS:: Full Code INSURANCE COVERAGE / FINANCIAL ISSUES:: BCBS CURRENT HOME/COMMUNITY SERVICES/EQUIPMENT:: None. PRIMARY CARE PHYSICIAN:: Kemal Menchaca POTENTIAL DISCHARGE NEEDS:: Follow up appointments. PATIENT/FAMILY EDUCATION NEEDS:: Review discharge instructions and limitations, discussion of self care needs including ask me three. ANTICIPATED BARRIERS TO DISCHARGE:: Pain management, possible surgery indicated. TRANSPORTATION:: Via private vehicle. PLAN:: Anticipate Zac will return home once medically cleared. His will drive him home via private vehicle. He will follow up with his PCP and discharge plan of care. CM will continue to follow.
[2022-02-20] MEDS: Gabapentin 300 MG CAP PO ×2 (13:17→21:03)
[2022-02-20 15:11] VITALS: BP 138/89; PULSE 79; RESP 18; TEMP 37; O2SAT 96
[2022-02-20] MEDS: Enoxaparin 40 MG/0.4 ML SYR SC (17:13)
[2022-02-20 21:13] VITALS: BP 165/92; PULSE 104; RESP 16; TEMP 37.2; O2SAT 95
[2022-02-21] MEDS: Acetaminophen 500 MG TAB 1000 MG PO ×4 (03:42→22:30)
[2022-02-21] MEDS: HYDROmorphone 2 MG TAB PO ×6 (03:42→23:18)
[2022-02-21] MEDS: Cyclobenzaprine 10 MG TAB PO ×4 (03:42→23:18)
[2022-02-21 08:06] VITALS: BP 134/83; PULSE 94; RESP 17; TEMP 37; O2SAT 93
[2022-02-21] MEDS: Psyllium PKT 1 EACH PO (08:30)
[2022-02-21] MEDS: Gabapentin 300 MG CAP PO ×3 (08:30→19:44)
--- NOTE | 2022-02-21 09:11 | PDOC.CMPRO ---
- If Service Date Differs Date of service: 02/21/22 Time of Service: 09:11 Care Management Progress Note S/O: Zac is awake, alert and ambulating independently in the halls. He requires IV Dilaudid for pain, as he is quite uncomfortable with movement. Zac met with Dr. Daniels today who feels that he may benefit from surgical fixation of his rib fractures. CM will continue to follow. A: 42 year old male admitted to [facility] on 02/19/22 for multiple rib fractures P: Anticipate Zac will return home once medically cleared. His will drive him home via private vehicle. He will follow up with his PCP and discharge plan of care. CM will continue to follow.
[2022-02-21] MEDS: Albuterol HFA 8 GM 60 PUFF INH IH (09:19)
[2022-02-21] MEDS: Lidocaine 5% Patch 1 PATCH TP (12:30)
--- NOTE | 2022-02-21 14:18 | W.PM.PROGNOT ---
Date of Service Date of service: 02/21/22 Time of Service: 14:19 Assessment and Plan Assessment and plan (1) Multiple fractures of ribs: Status: Acute Assessment and plan: I think we maximized our multimodal therapies here. I do not think adding more intravenous medications will help with his recovery, since they only seem to be sedating, and do not offer much in terms of improved pulmonary mechanics. His biggest complaint now is really movement pain, and the subjective sense of crepitus with each breath and cough. We can reassess this afternoon, but overall, I think the most benefit from surgical fixation of his rib fractures. Subjective Subjective Interval history since last seen: He felt a little bit better yesterday, and he has not required much in the way of intravenous analgesia. However, he still having a lot of difficulty with the incentive spirometer, and although his cough is improved with regards to the strength, it seems to be causing him a significant amount of pain. Exam Chest Chest: crepitus and localized rib tenderness with anteroposterior compression Other: He is more tender today over the area of the rib fractures Resp Effort & Inspection: cough and decreased respiratory effort Objective Last Vital Signs Temp 98.6 F 02/21/22 08:06 Pulse 94 H 02/21/22 08:06 Resp 17 02/21/22 08:06 BP 134/83 02/21/22 08:06 Pulse Ox 93 02/21/22 08:06 PAWSS Have you Been Recently Intoxicated or Drunk Within the Last 30 days?: No Have you Ever Experienced Previous Episodes of Alcohol Withdrawal?: No Have you ever Experienced Withdrawal Seizures?: No Have you ever Experienced Delirium Tremens(DT)s?: No Have you ever undergone Alcohol Rehabilitation Treatment (i.e, inpt ot outpatient treatment programs)?: No Have you ever Experienced Blackouts?: No Have you ever Combined Alcohol with other Downers within the last 90 days?: No Have you ever Combined Alcohol with any other Substance of Abuse during the last 90 days?: No Positive Blood Alcohol level on Presentation? [PCS.BAL]: No Evidence of Increased Autonomic Activity (i.e. HR>120, tremor, sweating, agitation, nausea)?: No Result: 0
[2022-02-21 15:25] VITALS: BP 113/79; PULSE 103; RESP 17; TEMP 37.3; O2SAT 94
[2022-02-21] MEDS: Enoxaparin 40 MG/0.4 ML SYR SC (16:19)
[2022-02-21 23:18] VITALS: BP 127/79; PULSE 103; RESP 14; TEMP 37.2; O2SAT 93
[2022-02-22] VITALS (58 sets, daily range): BP systolic 110–138; BP diastolic 62–99; PULSE 96–134; RESP 9–24; TEMP 34–36.8; O2SAT 83–95; BMI 25.7
--- NOTE | 2022-02-22 | DI.RAD_ITS ---
Exam(s) XR PORTABLE CHEST AP EXAM: XR PORTABLE CHEST AP CLINICAL HISTORY: chest tube s/p rib plating TECHNIQUE: 2D digital imaging was performed. COMPARISON: CT CT CHEST WO from 02/19/2022 CR,XR XR RIBS LT W PA LAT CHEST from 02/19/2022 FINDINGS: Patient is status post placement of fixation plates along the left ribs. Chest tube is in place pro jecting at the upper lobe. There is a small left apical pneumothorax. There is a large amount of ai r in the left lateral chest wall. The lungs are not well inflated. There is bibasilar atelectasis. The heart size appears normal. IMPRESSION: Small right apical pneumothorax. left chest tube. DATA REPOSITORY: RADIATION DOSE DELIVERED:
[2022-02-22] MEDS: Acetaminophen 500 MG TAB 1000 MG PO ×3 (04:15→21:27)
[2022-02-22] MEDS: HYDROmorphone 2 MG TAB PO ×2 (04:16→21:29)
[2022-02-22 06:44] LABS: Platelet Count 285 10^3/uL (130-400)
[2022-02-22] MEDS: Gabapentin 300 MG CAP PO ×2 (08:02→21:31)
[2022-02-22] MEDS: MORPHine 2 MG/ML SYR IVP ×3 (08:09→23:42)
[2022-02-22] MEDS: Normal Saline Flush 10 ML SYR IVP ×2 (08:10→21:32)
--- NOTE | 2022-02-22 08:58 | PDOC.CMPRO ---
- If Service Date Differs Date of service: 02/22/22 Time of Service: 08:58 Care Management Progress Note S/O: Zac went to the OR today for surgical repair of his rib fractures. CM will continue to follow. A: 42 year old male admitted to [facility] on 02/19/22 for multiple rib fractures P: Anticipate, Zac will return home once medically cleared. His will drive him home via private vehicle. He will follow up with his PCP and discharge plan of care. CM will continue to follow.
--- NOTE | 2022-02-22 12:30 | W.ANESPRE ---
General Info Date of Service Date Performed: 02/22/22 Height: 5 ft 11 in Weight: 83.915 kg Body Mass Index (BMI): 25.7 Surgical Procedure: Operation Date: 02/22/22 13:50 Proposed Procedure Side Surgeon p REPAIR RIB FX Wolf Daniels MD Meds Allergies and Home Medications Allergies Allergy/AdvReac Type Severity Reaction Status Date / Time No Known Allergies Allergy Verified 11/15/21 16:11 Home Medication Medication Instructions Recorded albuterol sulfate 90 mcg/actuation 2 puff inhalation Q4H PRN PRN 10/01/20 aerosol inhaler (Ventolin HFA) asthma #8.5 grams lactobacillus combo no.11 15 1 cap PO DAILY 01/18/21 billion cell sprinkle capsule (Probiotic) omeprazole magnesium 20 mg 20 mg PO DAILY #90 tabs 10/13/21 tablet,delayed release (Prilosec OTC) Current Visit Medications: Current Medications Generic Name Dose Route Start Last Admin Trade Name Freq PRN Reason Stop Dose Admin Acetaminophen 1,000 mg 02/19/22 16:00 02/22/22 10:29 Acetaminophen 500 Mg Tab PO 1,000 mg Q6H MICHEL Administration Albuterol Sulfate 2 puff 02/19/22 18:47 02/21/22 09:19 Albuterol Hfa 8 Gm 60 Puff Inh IH 2 puffs Q4H PRN PRN Administration Cyclobenzaprine HCl 10 mg 02/19/22 14:24 02/21/22 23:18 Cyclobenzaprine 10 Mg Tab PO 10 mg TID PRN PRN Administration Device 1 each 02/19/22 19:00 Inhaler, Assist Device DIRECTED MICHEL Enoxaparin Sodium 40 mg 02/19/22 16:00 02/21/22 16:19 Enoxaparin 40 Mg/0.4 Ml Syr SC 40 mg Q24H MICHEL Administration Gabapentin 300 mg 02/20/22 14:00 02/22/22 08:02 Gabapentin 300 Mg Cap PO 300 mg TID MICHEL Administration Hydromorphone HCl 2 mg 02/20/22 09:13 02/22/22 04:16 Hydromorphone 2 Mg Tab PO 2 mg Q3H PRN PRN Administration Sodium Chloride 500 mls @ 0 mls/hr 02/19/22 14:24 Saline 500ml Bag IV PRN PRN As Directed IV Miscellaneous Supplies 1 each 02/19/22 14:30 Iv Access IV DIRECTED MICHEL Lidocaine 1 patch 02/20/22 10:00 02/22/22 10:35 Lidocaine 5% Patch TP Not Given Q24H MICHEL Miscellaneous 1 each 02/20/22 22:00 02/21/22 22:45 Patch Removal (Lidocaine) TP Not Given Q24H MICHEL Morphine Sulfate 2 mg 02/19/22 14:24 02/22/22 08:09 Morphine 2 Mg/Ml Syr IVP 2 mg Q1H PRN PRN Administration Ondansetron HCl 4 mg 02/19/22 14:24 Ondansetron 4 Mg/2 Ml Vial IVP Q4H PRN PRN Psyllium Hydrophilic Mucilloid 1 each 02/20/22 08:30 02/22/22 08:03 Psyllium Pkt PO Not Given DAILY [facility] Sodium Chloride 0 ml 02/19/22 14:24 02/22/22 08:10 Normal Saline Flush 10 Ml Syr IVP 10 ml PRN PRN Administration PFSH Active Problems Active Problems: Problem Status Onset Code Multiple fractures of ribs S22.49XA Diverticulitis K57.92 Tinea versicolor B36.0 Smoker F17.200 Diverticula of colon K57.30 Acute diarrhea R19.7 Diverticulosis K57.90 Diastasis recti M62.08 Umbilical hernia K42.9 GERD (gastroesophageal reflux disease) K21.9 Asthma J45.909 Medical History Medical History Colon wall thickening Hyperplastic colon polyp Removed during scope. Surgical History Surgical History History of colonoscopy with polypectomy (~01/26/21) S/P knee surgery Tobacco Smoking/Tobacco Use Status: Current every day Tobacco Type: cigarettes Passive smoking exposure: Yes Second hand exposure: Yes Alcohol Alcohol Intake: current Alcohol intake frequency: 3 or more drinks per day Alcohol type: beer and hard liquor Substance Use Substance use: Occasionally Substance use type: marijuana Vital Signs and Lab Results Vital Signs Most Recent Vital Signs in EMR: Most Recent Vital Signs Temp Pulse Resp BP Pulse Ox 36.5 C 96 H 18 118/82 94 02/22/22 08:07 02/22/22 08:07 02/22/22 08:07 02/22/22 08:07 02/22/22 09:18 Lab Results Result Diagrams: 02/22/22 05:48 02/19/22 10:30 Blood Type / Crossmatch: No Data to Display Complete Blood Count: White Blood Count 14.07 10^3/uL (4.4-10.8) H 02/19/22 10:30 Red Blood Count 5.57 10^6/uL (4.36-5.78) 02/19/22 10:30 Hemoglobin 17.7 g/dL (13.5-17.5) H 02/19/22 10:30 Hematocrit 52.3 % (40.0-50.0) H 02/19/22 10:30 Platelet Count 285 10^3/uL (130-400) 02/22/22 05:48 Complete Metabolic Panel: Sodium Level 140 mmol/L (136-145) 02/19/22 10:30 Potassium Level 4.3 mmol/L (3.5-5.1) 02/19/22 10:30 Chloride Level 100 mmol/L (98-107) 02/19/22 10:30 Carbon Dioxide Level 28.8 mmol/L (21.0-32.0) 02/19/22 10:30 Blood Urea Nitrogen 8 mg/dL (7-18) 02/19/22 10:30 Creatinine 0.8 mg/dL (0.70-1.30) 02/19/22 10:30 Calcium Level 9.1 mg/dL (8.5-10.1) 02/19/22 10:30 Albumin 4.7 g/dL (3.4-5.0) 02/19/22 10:30 Glucose Level 98 mg/dL (74-106) 02/19/22 10:30 Liver Function Panel: Alanine Aminotransferase (ALT/SGPT) 45 U/L (16-63) 02/19/22 10:30 Aspartate Amino Transf (AST/SGOT) 25 U/L (15-37) 02/19/22 10:30 Coagulation Panel: No Data to Display Cardiac Panel: Troponin I < 50 ng/L (<or=60) 02/19/22 Arterial Blood Gas: No Data to Display Venous Blood Gas: No Data to Display Pancreas Panel: No Data to Display Thyroid Panel: No Data to Display Infectious Disease: Coronavirus (COVID-19)(PCR) Negative (Negative) 02/19/22 14:13 Coronavirus 2019 Source Nasal/Nares 02/19/22 14:13 Blood Cultures: No Data to Display Toxicology Panel: No Data to Display Imaging and Studies Imaging and Studies Study information below may be from another EMR and interpreted by another provider. Please see original notes in EMR for more complete details. EKG Summary: 02/19/22: sinus tach. Anesthesia Assessment and Plan Anesthesia History Personal History: No History of Anesthesia Complications Family History: No Family History of Anesthesia Complications Exercise Tolerance Exercise Tolerance: Metabolic Equivalents>4 Cardiac & Pulmonary Exam Cardiac Exam: Normal S1/S2 Heart Sounds Pulmonary Exam: Clear Bilateral Breath Sounds Implantable Cardiac Device Does patient have a Pacemaker or an ICD?: No Airway Exam Known Difficult Airway: No Mallampati Class: 1 Mouth Opening: Normal (> 3cm) Thyromental Distance: Greater than 3 cm Neck Range of Motion: Full ROM Neck Circumference: Normal Teeth Condition: Normal Dentition ASA Classification ASA Score: ASA 2 Emergency Case?: No NPO Status NPO Status: NPO Clears >2 hours, Solids >8 hours Anesthesia Plan Resuscitation Status: Full Code Anesthesia Technique: General Anesthesia Airway Planned: Double Lumen Endotracheal Tube Pain Management: Surgeon and patient request nerve block Monitors Used: Standard Monitors Preoperative Comments:: 42 yo male for repair of rib fractures. currently admitted after a fall on 02/19/22 sustaining multiple left sided rib fractures. has carlitos receiving acetaminophe, morphine, and hydromoprhone for pain. Sig PMHx: GERD (well controlled), asthma (uses rescue inhaler 1x/day, smoker, daily EtOH, Plan: GA/RONALD, 2nd IV
[2022-02-22] MEDS: Albuterol HFA 8 GM 60 PUFF INH IH (13:40)
[2022-02-22] MEDS: Lactated Ringers 1,000 ML 30 ML IV ×2 (13:47→14:57)
[2022-02-22] MEDS: ceFAZolin 2 GM/50 ML BAG IVPB (14:33)
--- NOTE | 2022-02-22 14:55 | W.ANESNERVE ---
Nerve Block Single Injection Procedure Date and Time Date Performed: 02/22/22 Procedure Start: 14:05 Location Where Procedure Performed Procedure Location: Operating Room Procedure Stop: 14:12 Reason Performed: Postoperative Analgesia Requesting Provider: Wolf Daniels Timeout Performed Timeout Performed: Yes Monitoring Used ECG, Blood Pressure, SpO2, ETCO2 and See EMR for corresponding vital signs Sterility Sterility: Hand Hygiene, Surgical Cap, Surgical Mask, Sterile Gloves, Eye Protection and Chlorhexidine Sedation Given During Procedure Sedation Given (Indicate Dose Given): Other: (done post intubation) Medication/Route/Dose:: n/a Patient Mental Status Patient Mental Status: Performed under general anesthesia Nerve Block 1st Nerve Block: Laterality: Left Block Type: Erector Spinae (Upper) Needle / Catheter Used: 100mm SonoPlex II Local Anesthetic Bolus (Indicate Dose Given): None and Bupivacaine 0.375% Dose:: 20ml Additives (Indicate Dose Given): Epinephrine to make 1:400,000 (2.5mcg/ml) Dose:: 50mcg Ultrasound: Sterile probe cover and gel used Ultrasound Image Saved?: Yes Nerve Stimulator: Not Used Paresthesia: None Procedure Tolerated: No Complications Procedure Outcome: Successful Performed By: Ina Dos Santos Supervised By: Mu Martinez
[2022-02-22] MEDS: Bupivacaine 0.5% Pres-Free W/EPI 30 ML VIAL (16:22)
--- NOTE | 2022-02-22 17:29 | ROE_ITS ---
Date of service: 02/22/22 Time of Service: 17:29 Operative Note Operative Note DATE OF PROCEDURE: 02/22/22 PRE-OP DIAGNOSIS: Multiple left-sided rib fractures with refractory pain and crepitus POST-OP DIAGNOSIS: same PROCEDURE: Video-assisted thorascopic surgery with reduction and fixation of left-sided ribs 5 6 and 7 SURGEON: Wolf Daniels CLIENT ANALYST: Ellen Daniel ANESTHESIA TYPE: Local By Surgeon and General LMA/ETT Refer to Anesthesia Record ESTIMATED BLOOD LOSS: 150 PATHOLOGY: none sent COMPLICATIONS: None Patient was transported to: PACU Patient's condition: stable Implants: Rib matrix advantage intrathoracic fixation long bridge and 23 mm locking post x3, locking caps x6, 9.5 mm washer x6 Indications: Zac is a 42-year-old male with left-sided fourth, fifth, sixth and seventh rib fractures. Despite maximization of the multimodal pain regimen, he has ref ractory pain which precludes adequate pulmonary toileting and incentive spirometry. Procedure Description: After the induction of general endotracheal anesthesia, we moved the patient into the right lateral decubitus positioning. I took great care to pad all the points of contact. Genitals were arranged. Next, his back was prepped, and the anesthesia service provided ultrasound-guided nerve blocks. I then used an ultrasound to identify fracture lines on the fifth sixth and seventh ribs. I then prepped and draped the chest in usual fashion. Next I made an incision posterior laterally relative to the fracture line. I dissected down to the rib and into the intrapleural space over the rib. I entered the pleural cavity under direct vision. I used the Bovie to assist with hemostasis. I then affixed a laparoscopy port into the incision site to deliver a 5 mm 30 degree scope. I was able to identify fractures on the fourth, fifth, sixth, and seventh ribs. The fracture on the fourth rib was a very subtle, and the rib felt stable with manipulation. The the fifth through seventh ribs however were unstable, and I was able to manipulate the anterior and posterior segments with ease. Therefore, I sounded out the ribs with a small needle. I then made skin incisions anterior and posterior to the fracture line on the fifth sixth and seventh ribs. I dissected down to the rib with the Bovie device. Next, using a drill guide, and with the direct vision of the scope, I created bicortical holes in the appropriate locations. Next, using guidewires, I delivered intrathoracic fixation bridges onto the fifth sixth and seventh ribs. Locking posts were delivered with the assistance of the guidewires to the superficial rib edge, ext ernal knots and washers were attached, and the plates were fixed in place according to the marshmallow machine operator's instructions. Guidewires were removed, and the post were cut sequentially Next, using a suction irrigation system, I evacuated all remaining hemothorax. I then delivered a 20 [place] chest tube apically and anterior, and brought this out through the VATS port site. I closed the deep fascia with interrupted Vicryl stitches here, and approximated the deep dermis with interrupted Vicryl's as well. Skin was sewn with interrupted nylon sutures taking care not to entrap the chest tube, and bring it out through the middle of the incision. The locking posts were all cut flush with the external washer, and the percutaneous sites were irrigated and closed in layers. Bandages were applied, the patient was rolled back into the supine position prior to extubation.
--- NOTE | 2022-02-22 18:04 | DI.VRAD_ITS ---
PROCEDURE INFORMATION: Exam: XR Chest Exam date and time: 02/22/2022 5:20 PM Age: 42 years old Clinical indication: Device placement; Other: Chest tube; Prior surgery; Surgery date: Post-operative (0-2 days) TECHNIQUE: Imaging protocol: Radiologic exam of the chest. Views: 1 view. COMPARISON: CT CHEST WO 02/19/2022 12:06 PM FINDINGS: Tubes, catheters and devices: There is a new left-sided chest tube with its tip projecting lateral to the aortic arch. There is increased soft tissue air in the lateral lower left chest as well as superior to the left clavicle, which may be related to the prior chest tube placement. Lungs: There are increased bibasilar airspace opacities most of which likely represents atelectasis. There is no pulmonary vascular congestion. Pleural spaces: There is a new small left pneumothorax, measuring up to 1 cm at the lateral left base. Cannot exclude new small right pleural effusion. Heart/Mediastinum: The cardiomediastinal silhouette is within normal limits. Bones/joints: There are new plates and screws involving the anterolateral aspects of the left 5th-7th ribs which appear intact. IMPRESSION: 1. New small left pneumothorax, with left chest tube in place as described above. 2. Increased soft tissue air around the left chest as described above. 3. Increased mild bibasilar airspace opacities, most of which likely represents atelectasis but cannot exclude mild aspiration or pneumonia in these regions. Recommend clinical correlation. Dictated and Authenticated by: Venkata Sterling MD. Ordering:LORAINE Blomo MD
[2022-02-22] MEDS: Albuterol/Ipratropium 3 ML UPD VIAL (18:11)
[2022-02-22] MEDS: HYDROmorphone 2 MG/ML SYR IVP ×2 (18:48→19:36)
[2022-02-22] MEDS: Ketorolac 15 MG/ML VIAL IVP (19:13)
[2022-02-22] MEDS: Polyethylene Glycol 3350 17 GM PACKET PO (21:24)
[2022-02-22] MEDS: Cyclobenzaprine 10 MG TAB PO (21:28)
[2022-02-22] MEDS: guaiFENesin 600 MG TABCR 1200 MG PO (21:28)
[2022-02-22] MEDS: Ondansetron 4 MG/2 ML VIAL IVP (23:43)
[2022-02-23] VITALS (61 sets, daily range): BP systolic 111–132; BP diastolic 75–84; PULSE 84–115; RESP 7–23; TEMP 32–37.2; O2SAT 90–98
[2022-02-23] MEDS: MORPHine 2 MG/ML SYR IVP (02:03)
[2022-02-23] MEDS: Ketorolac 15 MG/ML VIAL IVP ×4 (02:18→20:41)
[2022-02-23] MEDS: Acetaminophen 500 MG TAB 1000 MG PO ×4 (04:07→21:19)
--- NOTE | 2022-02-23 06:00 | DI.RAD_ITS ---
Exam(s) XR PORTABLE CHEST AP EXAM: XR PORTABLE CHEST AP CLINICAL HISTORY: rule out pneumothorax prior to chest tube removal TECHNIQUE: 2D digital imaging was performed. COMPARISON: 22 February 2022 FINDINGS: There has been no change in position of the left chest tube. Air is again noted outside the left guerre[address] st wall. No pneumothorax is visible. Fixation plates are again noted along the left ribs. There is minimal blunting at both costophrenic angles consistent with small effusions. No infiltrates are id entified. IMPRESSION: No visible pneumothorax. DATA REPOSITORY: RADIATION DOSE DELIVERED:
[2022-02-23] MEDS: HYDROmorphone 2 MG TAB PO (06:01)
--- NOTE | 2022-02-23 06:45 | PGE_ITS ---
Date of Service Date of service: 02/23/22 Time of Service: 06:45 Assessment and Plan Assessment and plan (1) Multiple fractures of ribs: Status: Acute Assessment and plan: Zac is POD #1 from rib plating CXR is pending Continue with pain control with gabapentin, flexeril, toradol, tylenol and morphine Continue with ISP and acapella Continue with mucinex for thick secretions Subjective Subjective Interval history since last seen: Zac is POD #1 s/p Rib plating. He is doing OK. Pain is fairly well controlled. He is using his incentive. He only gets up to about 800. He has been afebrile. Not much output from the chest tube. Exam [facility] Head: normocephalic and atraumatic Resp Effort & Inspection: able to speak in complete sentences and decreased respiratory effort Auscultation: clear to auscultation bilaterally Cardio Rate: regular rate Rhythm: regular rhythm Objective Last Vital Signs Temp 98.2 F 02/23/22 03:46 Pulse 86 02/23/22 06:00 Resp 8 L 02/23/22 06:10 BP 113/75 02/23/22 06:00 Pulse Ox 94 02/23/22 06:10 Laboratory Results - last 24 hr 02/22/22 05:48 Plt Count 285 PAWSS Have you Been Recently Intoxicated or Drunk Within the Last 30 days?: No Have you Ever Experienced Previous Episodes of Alcohol Withdrawal?: No Have you ever Experienced Withdrawal Seizures?: No Have you ever Experienced Delirium Tremens(DT)s?: No Have you ever undergone Alcohol Rehabilitation Treatment (i.e, inpt ot outpatient treatment programs)?: No Have you ever Experienced Blackouts?: No Have you ever Combined Alcohol with other Downers within the last 90 days?: No Have you ever Combined Alcohol with any other Substance of Abuse during the last 90 days?: No Positive Blood Alcohol level on Presentation? [PCS.BAL]: No Evidence of Increased Autonomic Activity (i.e. HR>120, tremor, sweating, agitation, nausea)?: No Result: 0
[2022-02-23] MEDS: Gabapentin 300 MG CAP PO ×3 (08:36→20:40)
[2022-02-23] MEDS: guaiFENesin 600 MG TABCR 1200 MG PO ×2 (08:36→20:40)
[2022-02-23] MEDS: Normal Saline Flush 10 ML SYR IVP (08:37)
[2022-02-23] MEDS: Polyethylene Glycol 3350 17 GM PACKET PO ×2 (08:37→20:40)
--- NOTE | 2022-02-23 08:37 | W.ANESPOSTOP ---
Postoperative Evaluation Date, Time and Location Date Performed: 02/23/22 Time Performed: 08:37 Patient Location: Intensive Care Unit Vital Signs Most Recent Imported Vital Signs: Most Recent Vital Signs Temp Pulse Resp BP Pulse Ox 36.8 C 86 8 L 113/75 94 02/23/22 03:46 02/23/22 06:00 02/23/22 06:10 02/23/22 06:00 02/23/22 06:10 Pain Score Most Recent Pain Score: Most Recent Pain Score Pain Level [LEFT RIBS] 7 02/22/22 20:50 Pain Level 0 02/23/22 04:00 Assessment Mental Status: Awake (Alert & Oriented to Patient Baseline) Airway and Respiratory Function: Abnormal Respiratory exam (See explanation) (Patient remains on high-flow NC and in care of ICU staff due to hypoxemia. ) Cardiovascular Function: Hemodynamically Stable Hydration Status: Adequately Hydrated Nausea & Vomiting: No Nausea or Vomiting Pain: Pain is tolerable per patient Peripheral Nerve Block: Regional nerve block not resolved at time of post operative discharge (Reports better than initial fracture but still hurts. )
--- NOTE | 2022-02-23 09:28 | CMPROGNOTE_ITS ---
- If Service Date Differs Date of service: 02/23/22 Time of Service: 09:28 Care Management Progress Note S/O: Zac was sitting up in a chair when CM met with him. He was polite and agreeable to conversation. Zac informed CM that he had surgery yesterday to stabilize his rib fractures and is still having quite a bit of pain. Medication helps but he stated that it is still uncomfortable when he moves. Zac shared that his oxygen levels drop into the 80's with movement and that he is trying to use his incentive spirometer as much as possible. He has been on high flow nasal oxygen since last evening.Zac stated that he is looking forward to discharge but understands that he may need to stay another day to have his chest tube removed. A: 42 year old male admitted to [facility] on 02/19/22 for multiple rib fractures P: Anticipate, Zac will return home once medically cleared. His will drive him home via private vehicle. He will follow up with his PCP and discharge plan of care. CM will continue to follow and assess for discharge needs.
--- NOTE | 2022-02-23 10:24 | DI.VRAD_ITS ---
PROCEDURE INFORMATION: Exam: XR Chest Exam date and time: 02/23/2022 6:35 AM Age: 42 years old Clinical indication: Pain; Prior surgery; Surgery date: 3-7 days post-operative; Patient HX: R/O pneumothorax prior to chest tube removal TECHNIQUE: Imaging protocol: Radiologic exam of the chest. Views: 1 view. COMPARISON: XR PORTABLE CHEST AP 02/22/2022 5:20 PM FINDINGS: Tubes, catheters and devices: Left-sided chest tube unchanged Lungs: Left basilar airspace disease or atelectasis slightly improved. Interval improvement of aeration of the right lung base Pleural spaces: Small left pleural effusion. Small left pneumothorax, unchanged Heart/Mediastinum: Unremarkable. No cardiomegaly. Bones/joints: Status post plate fixation of multiple left-sided rib fractures Soft tissues: Diffuse left-sided subcutaneous emphysema IMPRESSION: 1. Interval improvement of aeration of the lung bases 2. Persistent small left pneumothorax Dictated and Authenticated by: Isabelle Pritchett MD. Ordering:LORAINE Bloom MD
[2022-02-23] MEDS: Lidocaine 5% Patch 1 PATCH TP (10:44)
[2022-02-23] MEDS: Enoxaparin 40 MG/0.4 ML SYR SC (15:06)
[2022-02-23] MEDS: Cyclobenzaprine 10 MG TAB PO (20:40)
[2022-02-24] VITALS (20 sets, daily range): BP systolic 97–116; BP diastolic 68–81; PULSE 78–121; RESP 16–24; TEMP 34–37.1; O2SAT 87–96
[2022-02-24] MEDS: Ketorolac 15 MG/ML VIAL IVP ×4 (01:18→20:01)
[2022-02-24] MEDS: Acetaminophen 500 MG TAB 1000 MG PO ×4 (04:01→21:32)
--- NOTE | 2022-02-24 05:13 | NUR.NOTE ---
Nursing Note: High Flow tubing continues to accumulate condensation and occasionally causing moisture to squirt through nasal pillows. This service writer has returned moisture back to humidifier reservoir several times since ~ midnight. Each time patient has called for this issue. Patient has been on room air ~92%. C.C. made aware and we have placed patient on 2L via nasal cannula for now and are notifying RT. Patient does request to discharge today, so he has been appreciative of the titration of 02 devices. Will continue to monitor patients respiratory status closely and encouraged Respiratory hygiene.
[2022-02-24 06:19] LABS: Platelet Count 280 10^3/uL (130-400)
[2022-02-24] MEDS: Polyethylene Glycol 3350 17 GM PACKET PO (08:24)
[2022-02-24] MEDS: Normal Saline Flush 10 ML SYR IVP ×2 (08:24→14:12)
[2022-02-24] MEDS: Cyclobenzaprine 10 MG TAB PO ×2 (08:24→20:00)
[2022-02-24] MEDS: Psyllium PKT 1 EACH PO (08:24)
[2022-02-24] MEDS: Gabapentin 300 MG CAP PO ×3 (08:25→20:00)
[2022-02-24] MEDS: guaiFENesin 600 MG TABCR 1200 MG PO ×2 (08:25→20:00)
--- NOTE | 2022-02-24 09:12 | W.PM.PROGNOT ---
Date of Service Date of service: 02/24/22 Time of Service: 09:12 Assessment and Plan Assessment and plan (1) Multiple fractures of ribs: Status: Acute Assessment and plan: He needs to get up and move around today, and continue the use of his pulmonary toileting. We will try to wean the nasal cannula off. If you liberate from oxygen, and remains free from intravenous medications, then we can try to discharge him home this afternoon. Subjective Subjective Interval history since last seen: He complained of the high flow nasal cannula overnight, but is sensitive cough and dyspnea has improved. He is continuing to use a spirometer, and is able to achieve higher levels each time. He did have some difficulty sleeping. Exam Chest Other: Incision sites are clean, and the chest wall feel stable to me. I do not appreciate any crepitus. Resp Effort & Inspection: normal respiratory effort Auscultation: bronchial breath sounds Objective Last Vital Signs Temp 99.0 F 02/23/22 13:50 Pulse 91 H 02/24/22 06:12 Resp 18 02/24/22 06:12 BP 125/83 02/23/22 13:50 Pulse Ox 94 02/24/22 06:12 Laboratory Results - last 24 hr 02/24/22 05:38 Plt Count 280 PAWSS Have you Been Recently Intoxicated or Drunk Within the Last 30 days?: No Have you Ever Experienced Previous Episodes of Alcohol Withdrawal?: No Have you ever Experienced Withdrawal Seizures?: No Have you ever Experienced Delirium Tremens(DT)s?: No Have you ever undergone Alcohol Rehabilitation Treatment (i.e, inpt ot outpatient treatment programs)?: No Have you ever Experienced Blackouts?: No Have you ever Combined Alcohol with other Downers within the last 90 days?: No Have you ever Combined Alcohol with any other Substance of Abuse during the last 90 days?: No Positive Blood Alcohol level on Presentation? [PCS.BAL]: No Evidence of Increased Autonomic Activity (i.e. HR>120, tremor, sweating, agitation, nausea)?: No Result: 0
[2022-02-24] MEDS: Lidocaine 5% Patch 1 PATCH TP (09:45)
[2022-02-24] MEDS: HYDROmorphone 2 MG TAB PO (12:11)
--- NOTE | 2022-02-24 13:22 | PHA.REVIEW2 ---
Pharmacy Admission Review - Admission Clinical Review (Last Reviewed 02/19/22 @ 14:20 by Wolf Daniels MD) Multiple fractures of ribs (Acute) No Known Allergies Allergy (Verified 11/15/21 16:11) Resuscitation Status Full Code Height 5 ft 11 in Weight 87.2 kg - Renal Dosing Renal Dosing: BUN 8 mg/dL (7-18) 02/19/22 10:30 Creatinine 0.8 mg/dL (0.70-1.30) 02/19/22 10:30 Medications needing adjustments: Reviewed - Anticoagulation Anticoagulation: Hgb 17.7 g/dL (13.5-17.5) H 02/19/22 10:30 Hct 52.3 % (40.0-50.0) H 02/19/22 10:30 Plt Count 280 10^3/uL (130-400) 02/24/22 05:38 Creatinine 0.8 mg/dL (0.70-1.30) 02/19/22 10:30 DVT Prophylaxis: Reviewed Medications: Enoxaparin - Opiate Usage Evaluate Pain Scale/Pains Meds: Reviewed (PO dilaudid q2h prn, IV morphine q21h prn) Scheduled Bowel Reg ordered if on Opiates?: Yes - Relevant Labs Sodium 140 mmol/L (136-145) 02/19/22 10:30 Potassium 4.3 mmol/L (3.5-5.1) 02/19/22 10:30 Chloride 100 mmol/L (98-107) 02/19/22 10:30 Electrolytes, C-Reactive P, ESR: Reviewed - DM Control DM Control: Glucose 98 mg/dL (74-106) 02/19/22 10:30 DM Control: N/A - Cardiac Review Cardiac Review: Troponin I < 50 ng/L (<or=60) 02/19/22 10:30 BP, HR, EF%: Reviewed - Qtc Review QTc: Reviewed If Elevated, List meds needing intervention: 456 on admission - IV to PO Switch IV Medications: Reviewed (still requiring IV meds for pain control) - Home Meds Home Med List reviewed: Reviewed Relevent Home Meds Not ordered & why?: not ordered: omeprazole, probiotic - Current meds Current Medication Order Review: Reviewed
--- NOTE | 2022-02-24 13:25 | DI.RAD_ITS ---
Exam(s) XR PORTABLE CHEST AP EXAM: XR PORTABLE CHEST AP CLINICAL HISTORY: decreased sats after chest tube removed yesterday TECHNIQUE: COMPARISON: CR XR CHEST 2V PA LATERAL from 04/06/2021 CR,XR XR PORTABLE CHEST AP from 02/23/2022 FINDINGS: Portable AP chest at 1305 hours. Metallic fixation of multiple left ribs again noted. Prior left th oracotomy tube has been removed. No gross recurrent pneumothorax. Moderate atelectatic changes note d in the lung bases bilaterally. No new focal consolidation. No new significant pleural effusion on this frontal film. IMPRESSION: No recurrent pneumothorax post thoracotomy tube removal. RADIATION DOSE DELIVERED: Total DLP
[2022-02-24] MEDS: Enoxaparin 40 MG/0.4 ML SYR SC (16:52)
[2022-02-25] MEDS: Ketorolac 15 MG/ML VIAL IVP ×2 (01:35→08:05)
[2022-02-25] MEDS: Acetaminophen 500 MG TAB 1000 MG PO ×2 (04:36→11:21)
[2022-02-25 07:35] VITALS: BP 112/72; PULSE 95; RESP 18; TEMP 36; O2SAT 96
[2022-02-25] MEDS: Normal Saline Flush 10 ML SYR IVP (08:04)
[2022-02-25] MEDS: guaiFENesin 600 MG TABCR 1200 MG PO (08:06)
[2022-02-25] MEDS: Psyllium PKT 1 EACH PO (08:06)
[2022-02-25] MEDS: Gabapentin 300 MG CAP PO (08:06)
[2022-02-25 08:15] VITALS: O2SAT 95
[2022-02-25 11:24] VITALS: RESP 16; O2SAT 97
[2022-02-25 12:36] VITALS: BP 113/74; PULSE 96; RESP 12; TEMP 36.9; O2SAT 94
--- NOTE | 2022-02-25 12:42 | W.PM.DS.N ---
Date of service: 02/25/22 Time of Service: 12:42 DS: Diagnosis Discharge Diagnosis (1) Multiple fractures of ribs: Status: Acute Asessment and Plan: Take the medications as prescribed. Wash incisions with warm soapy water. Bandage as necessary. Follow-up in my office Wednesday 03/07 at 11 AM Discharge Plan Disposition Patient Disposition: HOME Condition: Good Discharge Details Reason For Visit: Multiple Rib Fractures Admit Date/Time: 02/19/22 14:00 Admit Provider: Wolf Daniels Attending Provider: Wolf Daniels Primary Care Provider: Kemal Menchaca Hospital Course Hospital Course: Brayden is 42 years old and had a standing level fall sustaining multiple rib fractures on the left side. Despite a broad multimodal pain regimen, he continues to have significant amount of pain and discomfort limiting his ability to pulmonary toilet maintain adequate ventilation. Additionally, he complained of significant amount of crepitus with any kind of activity. Therefore, we talked about the risks and benefits reduction and fixation of his rib fractures. He provided informed consent, and on February 22, he underwent video-assisted thorascopic surgery with fixation of his rib fractures. He did well, with near immediate improvement of his incentive spirometry. Despite some inital mild hypoxia, he rapidly improved with supplemental oxygen. By the morning of February 25 he was suitable candidate for discharge home. Home Meds and New Rx's Prescriptions: New acetaminophen 500 mg Tablet 1,000 mg PO Q6H Qty: 40 0RF Rx Instructions: Take 1 to 2 tabs by mouth every 5 hours as needed for pain. Alternate with over the counter ibuprofen lidocaine 5 % Adhesive Patch,Medicated 1 patch topical Q24H 14 Days Qty: 14 0RF Rx Instructions: Apply 1 patch to the affected area for 12 hours, then remove for the next 12 hours. Repeat daily as needed. tramadol 50 mg tablet 50 mg PO Q8H PRN (Reason: pain) Qty: 15 0RF Rx Instructions: Take 1 tablet by mouth every 8 hours as needed for severe pain. Use with caution since this medication is highly addictive. Continued Probiotic 15 billion cell capsule, sprinkle 1 cap PO DAILY Rx Instructions: do not crush/chew/cut; swallow whole OR may open and sprinkle in cold drink/food albuterol sulfate [Ventolin HFA] 90 mcg/actuation HFA aerosol inhaler 2 puff Inhalation Q4H PRN PRN (Reason: asthma) Qty: 8.5 4RF Rx Instructions: 2 puffs every 4 hours as needed for shortness of breath or cough omeprazole magnesium [Prilosec OTC] 20 mg tablet,delayed release (DR/EC) 20 mg PO DAILY Qty: 90 3RF Discharge Instructions Instructions: Rib Fracture (GEN) Additional Instructions: 1. Resume all of your home medications. 2. Okay to use tylenol and ibuprofen over the counter as needed. 3. Use tramadol as needed for severe pain. 4. Shower with warm soapy water. Pat dry. Use a bandaid if needed to protect your clothing. 5. No soaking or tub baths until I see you in the office. 6. No heavy lifting until I see you in the office. Anticipate being off of work for the next 3 to 4 weeks. 7.Call the office (or go directly to the emergency room after hours) if you notice any of the following: Develop chills (warm to touch), or if you have a thermometer and your temperature is above 101 Difficulty breathing or difficultly swallowing Persistent vomiting Any bleeding ? exceeding one tablespoon 8. Call your physician if the site where your intravenous was started becomes red, swollen, painful, and warm to touch. 9. Use your incentive spirometer frequently throughout the course of the day. While watching TV, it is helpful to do it on the commercial breaks. The level should be increasing each day. Please notify me immediately if you experience a day or 2 of decreased levels. Referrals: Wolf Daniels MD [ [facility] STAFF PHYSICIAN] - (March 07 at 11 AM) Activity:: Do not lift 10 pounds Equipment/Supplies:: Incentive spirometer Diet:: As Tolerated Discharge Orders Discharge Orders: Discharge Order (Routine); Ordered 02/25/22 Ordered By: Wolf Daniels DS: Summary Time Spent with Patient providing and/or coordinating discharge services: Greater than 30 minutes Status at Discharge Functional status at discharge: independent ambulation Overall status at discharge: patient is not back to baseline Mental Status: mental status grossly normal Speech and Movement: speech and movement normal Mood: congruent mood Affect: normal affect Exam Const General: cooperative, healthy appearing and comfortable Orientation: awake and oriented x3 Eyes General: appearance normal, both eyes and all related structures Conjunctivae: conjunctivae normal Sclera: sclerae normal Chest Other: There are some ecchymosis over the repair site, and a small hematoma above the top most posterior pin site. Resp Effort & Inspection: normal respiratory effort and able to speak in complete sentences Cardio Jugular venous pressure: no JVD Rate: regular rate GI Inspection: non-distended Palpation: soft, no guarding, no hernias and nontender Auscultation: normal bowel sounds Skin General skin exam: normal turgor Neuro General: patient alert, patient awake and patient oriented x3 Cognition: normal cognition Extrem Right lower extremity: no edema Left lower extremity: no edema Psych Mental Status: mental status grossly normal Speech and Movement: speech and movement normal Mood: congruent mood Affect: normal affect DS: Data Vitals/I&O Vitals and I&O: Vital Signs Temperature 96.8 F L 02/25/22 07:35 Temperature Source Tympanic 02/25/22 07:35 Pulse 95 H 02/25/22 07:35 Pulse Rhythm Regular 02/25/22 08:00 Pulse 98 H 02/23/22 13:00 Respiratory Rate 16 02/25/22 11:24 Respiratory Effort 02/25/22 08:00 Respiratory Depth Normal 02/25/22 08:00 Respiratory Pattern Normal 02/25/22 08:00 Blood Pressure 112/72 02/25/22 07:35 Blood Pressure Mean 88 02/23/22 12:01 Blood Pressure Position Sitting 02/23/22 11:53 Pulse Oximetry 97 02/25/22 11:24 Respiratory End-tidal CO2 29 02/22/22 19:34 Oxygen Delivery Method Nasal Cannula 02/25/22 11:24 Oxygen Flow Rate 1 02/25/22 11:24 Fraction of Inspired Oxygen (FIO2) 42 02/24/22 04:13 Pain Level 5 02/25/22 11:21 Comment 02/25/22 11:24 Intake & Output 02/24/22 02/25/22 02/25/22 23:59 11:59 23:59 Intake Total 500 / 1082 Output Total 625 / 625 Balance 500 / 1081 -625 / -625 Weight 192 lb 3.889 oz 185 lb 10.067 oz Intake: Oral 500 / 1082 Output: Urine 625 / 625 Other: Urine Color Dark Fannei Urine Appearance Clear Clear Comment Patient voiding independently at this time. Per patient voided in the toilet ON LICENSE OF [facility] All Active Problems Multiple fractures of ribs (Acute) Diverticulitis (Chronic) Tinea versicolor (Acute) Smoker (Acute) Diverticula of colon (Acute) Acute diarrhea (Acute) Diverticulosis (Acute) Diastasis recti (Acute) Umbilical hernia (Acute) GERD (gastroesophageal reflux disease) (Chronic) Asthma (Chronic) Medical History Colon wall thickening Hyperplastic colon polyp Removed during scope. Surgical History History of colonoscopy with polypectomy (~01/26/21) S/P knee surgery Family History Mother , 72 Cancer Lung Father No problems noted. Sister Cancer Breast Sister , 49 Cancer Lung Social History Smoking/Tobacco Use Status: Current every day Tobacco Type: cigarettes Tobacco: How many years used: 23 Quit status: considering quitting Second Hand Exposure: Yes Smoking risk assessment performed?: Yes Alcohol Intake: current Alcohol Intake frequency: 3 or more drinks per day Alcohol type: beer and hard liquor Drug use: Occasionally Substance use type: marijuana Caregiver/Support person: No Household members: spouse and significant other Housing: apartment Communication Needs: None Do you need help understanding health information?: Rarely Pets and animals: Yes Pets and animals: dog(s) Sexually active: Yes Do you think of yourself as: straight/heterosexual Current gender identity: male What is your relationship status?: How often do you talk on the phone with friends or family?: three or more times per week How often do you get together with friends or relatives?: twice per week How often do you attend yarsanism or scientology services?: decline to answer Do you belong to any clubs or organized social groups?: no Panel score (0-1 are the most socially isolated patients): 2 What type of physical activity do you participate in: walking Frequency: 3-4 times per week Yamilka/Rastafari: No preference Seatbelt use: always Helmet use: Yes Helmet use: always Do you feel safe at home: Yes Do you feel safe in your relationship?: Yes
[2022-02-25 13:11] VITALS: O2SAT 92
--- NOTE | 2022-02-25 16:11 | PDOC.CMDIS ---
- If Service Date Differs Date of service: 02/25/22 Time of Service: 16:11 LACE Index Scoring Tool - Questions: Length of Stay (in days): 4 - 6 Acuity (Admit via E.D.?): Yes E.D. Visits: 2 - Answers: Total Score: 9 Risk of Readmission: Low Risk Care Management Discharge Reason for Hospitalization: multiple rib fractures Discharge Plan: Zac will return home with no new services. His will drive him home via private vehicle. He will follow up with his PCP and discharge plan of care. Patient/Family Education Needs: Review discharge instructions and limitations, discussion of self care needs including ask me three.
== END 2022-02-25 13:49 | disposition home or self-care (01) | DRG 165 ==
LOC: ER 14:11 → MS 14:38 → ICU 02-22 20:18 → MS 02-23 13:53
PROVIDERS: Admitting Provider Surgery; Emergency Provider Nurse Practitioner Family; PCP Nurse Practitioner Family; Visit Provider Surgery
PROC: 0PS204Z Reposition 3 or More Ribs with Internal Fixation Device, Open Approach (ICD-10-PCS; CPT 49000; principal; 2022-02-22 13:30)
DX: S22.42XA Multiple fractures of ribs, left side, initial encounter for closed fracture (principal); R00.0 Tachycardia, unspecified; F17.210 Nicotine dependence, cigarettes, uncomplicated; J45.909 Unspecified asthma, uncomplicated; K21.9 Gastro-esophageal reflux disease without esophagitis; K57.30 Diverticulosis of large intestine without perforation or abscess without bleeding; K42.9 Umbilical hernia without obstruction or gangrene; W19.XXXA Unspecified fall, initial encounter; F12.90 Cannabis use, unspecified, uncomplicated; R09.02 Hypoxemia
CPT/HCPCS: 21811; 32551; 36415; 71250; 76942; 80053; 87635; 93005; 96361; 96374; 96375; 96376; 99285; J1650; 71045; 71046; 71100; 84484; 85025; 85049; 93010; 94667; J0690; J1100; J1170; J1885; J2250; J2270; J2370; J2405; J2704; J3490; J7620

== ENCOUNTER 2022-03-18 23:26 | Emergency (ER) | payer BC, SELFPAY ==
[2022-03-18 23:38] VITALS: BP 145/102; PULSE 87; RESP 18; TEMP 37.1; O2SAT 96
--- NOTE | 2022-03-19 00:15 | DI.CT_ITS ---
Exam(s) CT ABDOMEN PELVIS W EXAM: CT ABDOMEN PELVIS W CLINICAL HISTORY: llq pain, prior diverticulitis TECHNIQUE: Imaging Protocol: Axial computed tomography images with coronal and sagittal reformatted images were created and reviewed CONTRAST MATERIAL: Intravenous: Omnipaque 350 Contrast volume:100 mL Oral: No COMPARISON: CT CT renal colic wo from 04/18/[address] ABDOMEN PELVIS W from 01/06/[address] ABDOMEN PELVIS WO from 10/21/2021 FINDINGS: ABDOMEN: Lung Bases: Normal where visualized. Liver: Normal density. There is a 1.3 cm hypodense lesion seen in the left lobe of the liver. On the prior examination from 2020 there does appear to be nodular peripheral enhancement suggesting this i s a hemangioma. Portal, Superior Mesenteric, and Splenic Veins: Unremarkable. Gallbladder and Biliary Tract: No radiodense calculus or dilation. Pancreas: Normal density, no abnormal calcifications or inflammatory process. Spleen: Normal. Adrenals: No masses seen. Kidneys: Normal size, contour and axis. There is a 3 mm stone at the left UVJ causing mild hydronephr osis. There is a nonobstructing stone in the lower pole of the left kidney. No masses seen. Abdominal Aorta: Abdominal portion non-dilated. Bowel: No evidence of bowel obstruction. There is diverticulosis seen at the junction of the descend ing and sigmoid colon. There is associated mild stranding and wall thickening. This may reflect a m ild acute diverticulitis. Appendix is unremarkable. Peritoneal Cavity: No ascites, collection or mesenteric inflammatory response. No free air. Lymph Nodes: Within normal limits. Bones: Within normal limits for the patient's age. Plates seen transfixing the left rib fractures ar e not completely imaged on this examination. Soft Tissues: Unremarkable. PELVIS: Bladder: Symmetric distention, no gross wall thickening. Reproductive Organs: Unremarkable as visualized. Lymph Nodes: Within normal limits. Bones: Within normal limits for the patient's age. IMPRESSION: 1. There is a 3 mm stone at the left UVJ causing mild hydronephrosis. 2. Mild wall thickening and pericolonic stranding at the junction of the descending and sigmoid colon with associated diverticula most consistent with acute diverticulitis. 3. Left nephrolithiasis. RADIATION DOSE DELIVERED: 1,292.46mGy.cm Total DLP DATA REPOSITORY: All CT scans at this facility are submitted to the National Radiology Data Registry (NRDR) Dose Index Registry (DIR) with the [employer] (ACR). RADIATION OPTIMIZATION: All CT scans at this facility use at least one of these dose optimization te chniques: automated exposure control; mA and/or kV adjustment per patient size (includes targeted exa ms where dose is matched to clinical indication); or iterative reconstruction.
[2022-03-19 00:26] LABS: Abs Immature Grans 0.06 10^3/uL (0.0-0.06); Absolute Basophil Count 0.06 10^3/uL (0.0-0.2); Absolute Lymphocyte Count 1.65 10^3/uL (1.2-3.4); Absolute Neutrophil Count 12.15 10^3/uL (1.2-6.7); Basophils % 0.4; Eosinophils % 1.8; HCT 47.1 % (40.0-50.0); HGB 15.8 g/dL (13.5-17.5); Immature Grans % 0.4; Lymphocytes % 10.5; MCH 31.3 pg (27.0-33.0); MCHC 33.5 % (32.0-36.0); MCV 93 fL (80-95); MPV 9.4 fL (8.0-11.0); Monocytes % 9.8; Neutrophils % 77.1; Platelet Count 332 10^3/uL (130-400); RBC 5.05 10^6/uL (4.36-5.78); RDW 11.8 % (11.8-14.1); RDW-SD 40.7 fL; WBC 15.76 10^3/uL (4.4-10.8)
[2022-03-19 00:35] VITALS: BP 118/88; PULSE 58; RESP 18; TEMP 36.6; O2SAT 99
[2022-03-19 00:38] LABS: Absolute Eosinophil Count 0.28 10^3/uL (0.0-0.7); Absolute Monocyte Count 1.54 10^3/uL (0.1-0.8); RBC Morphology Normal
[2022-03-19 00:43] LABS: ALT 28 U/L (16-63); AST 19 U/L (15-37); Albumin 4.5 g/dL (3.4-5.0); Alkaline Phosphatase 83 U/L (46-116); Anion Gap 7.5 mmol/L (3-11); BUN 16 mg/dL (7-18); Bilirubin, Total 0.5 mg/dL (0.2-1.0); CO2 30.5 mmol/L (21.0-32.0); CREATININE 1.4 mg/dL (0.70-1.30); Calcium 9.7 mg/dL (8.5-10.1); Chloride 101 mmol/L (98-107); Estimated GFR 63.56 (mL/min/1.73m2); Glucose 101 mg/dL (74-106); Lipase 98 U/L (73-393); Potassium 3.6 mmol/L (3.5-5.1); Sodium 139 mmol/L (136-145); Total Protein 8.3 g/dL (6.4-8.2)
[2022-03-19] MEDS: Lactated Ringers 1,000 ML 1000 ML IV (01:09)
[2022-03-19] MEDS: ACETAMINOPHEN 1,000 MG/100 ML BTL 400 MG IVPB (01:10)
[2022-03-19] MEDS: Omnipaque 350 MG/ML 100 ML BTL IJ (01:19)
[2022-03-19] MEDS: Ondansetron 4 MG/2 ML VIAL IVP (01:49)
[2022-03-19] MEDS: cefTRIAXone 1 GM/50 ML BAG IVPB (01:50)
--- NOTE | 2022-03-19 01:56 | DI.VRAD_ITS ---
PROCEDURE INFORMATION: Exam: CT Abdomen And Pelvis With Contrast Exam date and time: 03/19/2022 1:10 AM Age: 42 years old Clinical indication: Other: Llq pain, prior diverticulitis TECHNIQUE: Imaging protocol: Computed tomography of the abdomen and pelvis with contrast. Contrast material: 350; Contrast volume: 100 ml; Contrast route: INTRAVENOUS (IV); COMPARISON: CT ABDOMEN PELVIS WO 10/21/2021 11:13 AM FINDINGS: Lungs: Emphysematous changes and scar tissue noted in the lung bases. Liver: Small cyst or hemangioma noted in the left liver. Liver parenchyma is homogeneous. Gallbladder and bile ducts: Normal. No calcified stones. No ductal dilation. Pancreas: Normal. No ductal dilation. Spleen: Normal. No splenomegaly. Adrenal glands: Normal. No mass. Kidneys and ureters: Mild left hydronephrosis and perinephric fat stranding. Left ureter is mildly dilated. Unremarkable right kidney. Stomach and bowel: Unremarkable stomach. Nondilated small bowel. No abnormal colonic distension. Mild proximal colonic stool. Wall thickening is observed through the descending and sigmoid colon, mild. Focal fat stranding is observed around the distal descending colon; see premium service representative axial image 53 series 4. Numerous diverticula are present. Rectum is collapsed and unremarkable. Appendix: Normal appendix. Intraperitoneal space: No free fluid. No free air. No abscess. Vasculature: Unremarkable. No abdominal aortic aneurysm. Lymph nodes: Unremarkable. No enlarged lymph nodes. Urinary bladder: A 2.5 mm stone is observed near the left ureteral vesicular junction, almost within the urinary bladder. Reproductive: Unremarkable as visualized. Bones/joints: No compression fractures. No anterolisthesis or retrolisthesis. Moderate degenerative changes noted L5-S1. Rib deformity and hardware partially visualized at the left 7th rib. Soft tissues: Unremarkable. IMPRESSION: 1. Left ureteral vesicular junction stone, 2.5 mm. 2. Mild left hydronephrosis. 3. Acute on chronic diverticulitis, distal descending colon. 4. No abscess. 5. No perforation. Dictated and Authenticated by: Rasheed Liao MD. Ordering:ERNESTINA Lerma MD
[2022-03-19] MEDS: Ketorolac 30 MG/ML VIAL IVP (02:00)
--- NOTE | 2022-03-19 02:21 | ED.GENADUL_ITS ---
Discharge Plan Disposition Patient Disposition: HOME Condition: Stable Discharge Details Clinical Impression: Ureterolithiasis, Acute diverticulitis Primary Care Provider: Kemal Menchaca ED Provider: Florentin Quinones Home Meds and New Rx's Prescriptions: New amoxicillin-pot clavulanate 875-125 mg tablet 1 tab PO BID Qty: 19 0RF tamsulosin [Flomax] 0.4 mg capsule 0.4 mg PO DAILY Qty: 7 0RF Continued Probiotic 15 billion cell capsule, sprinkle 1 cap PO DAILY Rx Instructions: do not crush/chew/cut; swallow whole OR may open and sprinkle in cold drink/food albuterol sulfate [Ventolin HFA] 90 mcg/actuation HFA aerosol inhaler 2 puff Inhalation Q4H PRN PRN (Reason: asthma) Qty: 8.5 4RF Rx Instructions: 2 puffs every 4 hours as needed for shortness of breath or cough omeprazole magnesium [Prilosec OTC] 20 mg tablet,delayed release (DR/EC) 20 mg PO DAILY Qty: 90 3RF acetaminophen 500 mg Tablet 1,000 mg PO Q6H Qty: 40 0RF Rx Instructions: Take 1 to 2 tabs by mouth every 5 hours as needed for pain. Alternate with over the counter ibuprofen Discharge Instructions Instructions: Diverticulitis (ED), Kidney Stones (ED), How to Strain Your Urine (ED), Diverticulitis Diet (ED) Additional Instructions: Regarding treatment of your acute diverticulitis: Please maintain a clear liquid diet tonight and tomorrow. You may advance your diet to include soft bland foods (like rice) the following day. Advance your diet slowly thereafter. Take full course of antibiotic as prescribed. Regarding treatment of your kidney stone: Please strain your urine. Please take ibuprofen over the counter. Take 600mg by mouth every 6 hours as needed for pain. Follow-up with urology. Please contact your primary care physician to arrange follow-up. Return to the ER immediately for any worsening or new concerning symptoms. Referrals: [facility] [Provider Group] Kemal Menchaca, [employer] [Primary Care Provider] - Discharge Data Discharge Date/Time-TO BE ENTERED AT DEPARTURE: 03/19/22 03:43 Medical Decision Making 42-year-old male with history of diverticulitis here with left lower quadrant abdominal pain and associated nausea today. Patient was given Zofran IV for nausea. Acetaminophen IV and Toradol IV were given for pain. I initiated antibiotic treatment with ceftriaxone IV for diverticulitis. CT of the abdomen pelvis was interpreted by radiology: IMPRESSION: 1. Left ureteral vesicular junction stone, 2.5 mm. 2. Mild left hydronephrosis. 3. Acute on chronic diverticulitis, distal descending colon. 4. No abscess. 5. No perforation. Labs reviewed: Leukocytosis noted. Patient reassessed and feeling much better. Plan to continue antibiotic coverage with Augmentin for diverticulitis. Plan to treat renal stone with Flomax. Will provide urine strainer. Plan for outpatient follow-up with PCP. Usual and customary discharge instructions were given to patient. Disposition decision was made weighing the risks and benefits of hospitalization versus outpatient treatment, the risk for further decompensation, and the patient's wishes. The patient was stable and requested discharge. Prior to discharge, my usual and customary return precautions were reviewed with the patient - this included follow-up instructions and reason to return to the emergency department if condition worsens, does not improve as expected, or other new concerns arise. Lab Data Lab results reviewed: Yes I reviewed the patient's lab results. Labs: Laboratory Tests Range/Units 03/19/22 03/19/22 03/19/22 00:15 00:15 02:43 WBC (4.4-10.8) 10^3/uL 15.76 H RBC (4.36-5.78) 10^6/uL 5.05 Hgb (13.5-17.5) g/dL 15.8 Hct (40.0-50.0) % 47.1 MCV (80-95) fL 93 MCH (27.0-33.0) pg 31.3 MCHC (32.0-36.0) % 33.5 RDW (11.8-14.1) % 11.8 Plt Count (130-400) 10^3/uL 332 MPV (8.0-11.0) fL 9.4 Immature Gran % 0.4 Neutrophils % 77.1 Lymphocytes % 10.5 Monocytes % 9.8 Eosinophils % 1.8 Basophils % 0.4 Nucleated RBC % (0.0-0.3) % 0.0 Absolute Neutrophils (1.2-6.7) 10^3/uL 12.15 H Absolute Lymphocytes (1.2-3.4) 10^3/uL 1.65 Absolute Monocytes (0.1-0.8) 10^3/uL 1.54 H Absolute Eosinophils (0.0-0.7) 10^3/uL 0.28 Absolute Basophils (0.0-0.2) 10^3/uL 0.06 RBC Morphology Normal Sodium (136-145) mmol/L 139 Potassium (3.5-5.1) mmol/L 3.6 Chloride (98-107) mmol/L 101 Carbon Dioxide (21.0-32.0) mmol/L 30.5 Anion Gap (3-11) mmol/L 7.5 BUN (7-18) mg/dL 16 Creatinine (0.70-1.30) mg/dL 1.4 H Est GFR (CKD-EPI 2020) (mL/min/1.73m2) 63.56 Glucose (74-106) mg/dL 101 Calcium (8.5-10.1) mg/dL 9.7 Total Bilirubin (0.2-1.0) mg/dL 0.5 AST (15-37) U/L 19 ALT (16-63) U/L 28 Alkaline Phosphatase (46-116) U/L 83 Total Protein (6.4-8.2) g/dL 8.3 H Albumin (3.4-5.0) g/dL 4.5 Lipase (73-393) U/L 98 Urine Color (Yellow) Yellow Urine Clarity (Clear) Clear Urine pH (5-8) 7.0 Ur Specific [place] (1.005-1.025) 1.015 Urine Protein (Negative) mg/dL Negative Urine Ketones (Negative) mg/dL Negative Urine Blood (Negative) Large H Urine Nitrite (Negative) Negative Urine Bilirubin (Negative) Negative Urine Urobilinogen (Up TO 0.2) EU/dL 0.2 Ur Leukocyte Esterase (Negative) Negative Urine RBC (0-2) HPF 5-10 H Urine WBC (0-5) HPF Negative Ur Epithelial Cells (Negative) HPF Rare Urine Crystals (Negative) HPF Negative Urine Bacteria (Negative) HPF Rare Urine Casts (Negative) LPF Negative Urine Mucus (Negative) Negative Ur Culture Indicated? No Urine Glucose (Negative) mg/dL Negative HPI General Mode of arrival: ambulatory . Date/Time Provider Initiated Documentation: 10/28/22 23:43 . Limitations to Documentation: no limitations . Information obtained by: patient . HPI Narrative: 42-year-old male with history of diverticulitis presents with chief complaint of abdominal pain. Patient notes left lower quadrant abdominal pain that started early this morning and has persisted. Pain is constant and persistent all day. Pain is sharp and feels different than prior flare of diverticulitis. He has associated nausea. No dysuria or hematuria. No bright red blood per rectum. Related Data Home Medications Medication Instructions Recorded Confirmed albuterol sulfate 90 mcg/actuation 2 puff inhalation Q4H PRN PRN 10/01/20 03/19/22 aerosol inhaler (Ventolin HFA) asthma #8.5 grams lactobacillus combo no.11 15 1 cap PO DAILY 01/18/21 03/19/22 billion cell sprinkle capsule (Probiotic) omeprazole magnesium 20 mg 20 mg PO DAILY #90 tabs 10/13/21 03/19/22 tablet,delayed release (Prilosec OTC) acetaminophen 500 mg tablet 1,000 mg PO Q6H pain #40 tabs 02/25/22 03/19/22 amoxicillin 875 mg-potassium 1 tab PO BID #19 tabs 03/19/22 clavulanate 125 mg tablet tamsulosin 0.4 mg capsule (Flomax) 0.4 mg PO DAILY #7 caps 03/19/22 Previous Rx's Medication Instructions Recorded albuterol sulfate 90 mcg/actuation 2 puff inhalation Q4H PRN PRN 10/01/20 aerosol inhaler (Ventolin HFA) asthma #8.5 grams omeprazole magnesium 20 mg 20 mg PO DAILY #90 tabs 10/13/21 tablet,delayed release (Prilosec OTC) acetaminophen 500 mg tablet 1,000 mg PO Q6H pain #40 tabs 02/25/22 amoxicillin 875 mg-potassium 1 tab PO BID #19 tabs 03/19/22 clavulanate 125 mg tablet tamsulosin 0.4 mg capsule (Flomax) 0.4 mg PO DAILY #7 caps 03/19/22 Allergies Allergy/AdvReac Type Severity Reaction Status Date / Time No Known Allergies Allergy Verified 03/09/22 11:39 General Stated Complaint: Abd Prob RASHAWN: 3 Review of Systems All systems reviewed & are unremarkable except as noted in HPI and below Constitutional Constitutional: Denies fever(s) PFSH All Active Problems (Updated 03/19/22 @ 03:08 by Florentin Quinones MD) Ureterolithiasis (Acute) Acute diverticulitis (Acute) Fracture, ribs (Acute) Diverticulitis (Chronic) Tinea versicolor (Acute) Smoker (Acute) Diverticula of colon (Acute) Acute diarrhea (Acute) Diverticulosis (Acute) Diastasis recti (Acute) Umbilical hernia (Acute) GERD (gastroesophageal reflux disease) (Chronic) Asthma (Chronic) Medical History Colon wall thickening Hyperplastic colon polyp Removed during scope. Surgical History History of colonoscopy with polypectomy (~01/26/21) S/P knee surgery Family History Mother , 72 Cancer Lung Father No problems noted. Sister Cancer Breast Sister , 49 Cancer Lung Social History Smoking/Tobacco Use Status: Former Tobacco Use Tobacco: How many years used: 23 Quit status: considering quitting Second Hand Exposure: Yes Smoking risk assessment performed?: Yes Alcohol Intake: current Alcohol Intake frequency: 3 or more drinks per day Alcohol type: beer and hard liquor Drug use: Occasionally Substance use type: marijuana Caregiver/Support person: No Household members: spouse and significant other Housing: apartment Communication Needs: None Do you need help understanding health information?: Rarely Pets and animals: Yes Pets and animals: dog(s) Sexually active: Yes Do you think of yourself as: straight/heterosexual Current gender identity: male What is your relationship status?: How often do you talk on the phone with friends or family?: three or more times per week How often do you get together with friends or relatives?: twice per week How often do you attend moravian or temple services?: decline to answer Do you belong to any clubs or organized social groups?: no Panel score (0-1 are the most socially isolated patients): 2 What type of physical activity do you participate in: walking Frequency: 3-4 times per week [place]/Holiness: No preference Seatbelt use: always Helmet use: Yes Helmet use: always Do you feel safe at home: Yes Do you feel safe in your relationship?: Yes Exam Const General: cooperative and uncomfortable HENMT Mouth: moist mucous membranes Eyes Conjunctivae: normal conjunctivae Sclera: normal sclerae Neck Neck: trachea midline and supple Resp Auscultation: clear to auscultation bilaterally, no rales, no rhonchi and no wheezes Cardio Rate: regular rate and not tachycardic Rhythm: regular rhythm GI Palpation: soft, not firm, no guarding, no masses, not rigid and tender in the LLQ Skin General skin exam: no rashes or lesions noted Neuro General: patient alert, patient awake and tone normal Extrem General: no edema Psych Appearance: grossly normal Mental Status: mental status grossly normal Speech and Movement: speech and movement normal Course Vital Signs Vital signs: Vital Signs Temperature 37.1 C 03/18/22 23:38 Pulse 87 03/18/22 23:38 Respiratory Rate 18 03/18/22 23:38 Blood Pressure 145/102 H 03/18/22 23:38 Pulse Oximetry 96 03/18/22 23:38 Temperature 36.6 C 03/19/22 00:35 Temperature Source Temporal Artery Scan 03/19/22 00:35 Pulse 58 L 03/19/22 00:35 Respiratory Rate 18 03/19/22 00:35 Respiratory Effort 03/18/22 23:41 Blood Pressure 118/88 03/19/22 00:35 Blood Pressure Position Supine 03/19/22 00:35 Pulse Oximetry 99 03/19/22 00:35 Oxygen Delivery Method Room Air 03/19/22 00:35 Oxygen Flow Rate 0 03/19/22 00:35 Pain Level 10 03/19/22 01:10 Lab/Test Results Lab/Test Results: Laboratory Tests Range/Units 03/19/22 03/19/22 00:15 00:15 WBC (4.4-10.8) 10^3/uL 15.76 H RBC (4.36-5.78) 10^6/uL 5.05 Hgb (13.5-17.5) g/dL 15.8 Hct (40.0-50.0) % 47.1 MCV (80-95) fL 93 MCH (27.0-33.0) pg 31.3 MCHC (32.0-36.0) % 33.5 RDW (11.8-14.1) % 11.8 Plt Count (130-400) 10^3/uL 332 MPV (8.0-11.0) fL 9.4 Immature Gran % 0.4 Neutrophils % 77.1 Lymphocytes % 10.5 Monocytes % 9.8 Eosinophils % 1.8 Basophils % 0.4 Nucleated RBC % (0.0-0.3) % 0.0 Absolute Neutrophils (1.2-6.7) 10^3/uL 12.15 H Absolute Lymphocytes (1.2-3.4) 10^3/uL 1.65 Absolute Monocytes (0.1-0.8) 10^3/uL 1.54 H Absolute Eosinophils (0.0-0.7) 10^3/uL 0.28 Absolute Basophils (0.0-0.2) 10^3/uL 0.06 RBC Morphology Normal Sodium (136-145) mmol/L 139 Potassium (3.5-5.1) mmol/L 3.6 Chloride (98-107) mmol/L 101 Carbon Dioxide (21.0-32.0) mmol/L 30.5 Anion Gap (3-11) mmol/L 7.5 BUN (7-18) mg/dL 16 Creatinine (0.70-1.30) mg/dL 1.4 H Est GFR (CKD-EPI 2020) (mL/min/1.73m2) 63.56 Glucose (74-106) mg/dL 101 Calcium (8.5-10.1) mg/dL 9.7 Total Bilirubin (0.2-1.0) mg/dL 0.5 AST (15-37) U/L 19 ALT (16-63) U/L 28 Alkaline Phosphatase (46-116) U/L 83 Total Protein (6.4-8.2) g/dL 8.3 H Albumin (3.4-5.0) g/dL 4.5 Lipase (73-393) U/L 98
[2022-03-19 02:59] LABS: Bilirubin Negative (Negative); Blood Large (Negative); Clarity Clear (Clear); Glucose Negative (Negative); Ketones Negative (Negative); Leukocyte Esterase Negative (Negative); Nitrite Negative (Negative); Specific Gravity 1.015 (1.005-1.025); Urobilinogen 0.2 EU/dL (Up TO 0.2)
[2022-03-19 03:03] LABS: Bacteria Rare HPF (Negative); C & S Indicated? No; Casts Negative LPF (Negative); Crystals Negative HPF (Negative); Epithelial Cells Rare HPF (Negative); Mucus Negative (Negative); WBC Negative HPF (0-5)
[2022-03-19] MEDS: Amoxicillin 875/Clav. 125 TAB PO (03:20)
[2022-03-19] MEDS: Tamsulosin 0.4 MG CAPCR PO (03:38)
[2022-03-19 03:43] VITALS: BP 134/68; PULSE 68; RESP 18; TEMP 37; O2SAT 100
== END 2022-03-19 03:43 | disposition home or self-care (01) ==
PROVIDERS: Emergency Provider Student in an Organized Health Care Education/Training Program; PCP Nurse Practitioner Family
DX: N13.2 Hydronephrosis with renal and ureteral calculous obstruction (principal); K57.32 Diverticulitis of large intestine without perforation or abscess without bleeding
CPT/HCPCS: 80053; 83690; 96365; 96375; 99285; 74177; 81003; 81015; 85025; 99284; J0131; J0696; J1885; J2405; J3490

== ENCOUNTER 2022-03-23 23:28 | Outpatient (REF) | payer BC, SELFPAY | END 2022-03-23 23:29 | disposition home or self-care (01) | LOC: LBN 23:28 | PROVIDERS: PCP Nurse Practitioner Family; Visit Provider Nurse Practitioner Family | DX: N20.1 Calculus of ureter (principal) | CPT/HCPCS: 82365 ==

== ENCOUNTER 2022-09-05 02:33 | Outpatient (CLI) | payer BC, SELFPAY ==
[2022-09-05] MEDS: Albuterol HFA 18 GM 200 PUFF INH IH (16:31)
[2022-09-05] MEDS: Inhaler, Assist Device 1 EACH MC (16:32)
--- NOTE | 2022-09-06 09:46 | PFT_ITS ---
Date of service: 09/05/22 Time of Service: 15:11 Pulmonary Function Test Result Indications: Possible COPD Interpretation Spirometry: There is moderate airflow limitation. There is no significant bronchodilator r esponse. Lung Volumes: There is air trapping. Diffusion Capacity: Normal diffusion. Airway Pressure: Normal airways resistance. Impression Moderate airflow obstruction with a normal diffusion. This may be consistent with COPD (chronic bronchitis). Clinical Correlation therefore is recommended.
== END 2022-09-05 02:34 | disposition home or self-care (01) ==
LOC: RT 02:33
PROVIDERS: PCP Nurse Practitioner Family; Visit Provider Physician Assistant Surgical
DX: J44.9 Chronic obstructive pulmonary disease, unspecified (principal); F17.210 Nicotine dependence, cigarettes, uncomplicated
CPT/HCPCS: 94060; 94726; 94729

== ENCOUNTER 2023-02-17 03:13 | Outpatient (CLI) | payer BC, SELFPAY ==
[2023-02-17 12:56] LABS: CREATININE 0.9 mg/dL (0.70-1.30); Calculated LDL 116 mg/dL (<100); Cholesterol 176 mg/dL (<200); Estimated GFR 107.33 (mL/min/1.73m2); HDL Cholesterol 44 mg/dL (40-60); Triglyceride 81 mg/dL (<150)
== END 2023-02-17 03:14 | disposition home or self-care (01) ==
LOC: LOS 03:13
PROVIDERS: PCP Nurse Practitioner Family; Visit Provider Nurse Practitioner Family
DX: R79.89 Other specified abnormal findings of blood chemistry (principal); Z13.220 Encounter for screening for lipoid disorders; K21.9 Gastro-esophageal reflux disease without esophagitis
CPT/HCPCS: 36415; 80061; 82565

== ENCOUNTER 2023-03-13 07:38 | Day surgery (SDC) | payer BC, SELFPAY ==
--- NOTE | 2023-03-12 19:28 | W.PM.DSUDISC ---
Date of service: 03/13/23 Time of Service: 09:29 Discharge Plan Disposition Patient Disposition: Home Condition: Good Discharge Details Reason For Visit: screening colonoscopy Attending Provider: Wolf Daniels Primary Care Provider: Kemal Mecnhaca Home Meds and New Rx's Prescriptions: New imiquimod 3.75 % cream in metered-dose pump 1 pump topical QHS Qty: 7.5 0RF Rx Instructions: Apply a thin layer once daily (using up to 1 packet or 1 full actuation of pump) prior to bedtime; leave on skin for ~8 hours, then remove with mild soap and water. Continue treatment until there is total clearance of the warts or for a maximum duration of therapy of 8 weeks. Continued albuterol sulfate [Ventolin HFA] 90 mcg/actuation HFA aerosol inhaler 2 puff Inhalation Q4H PRN PRN (Reason: asthma) Qty: 8.5 4RF Rx Instructions: 2 puffs every 4 hours as needed for shortness of breath or cough omeprazole magnesium [Prilosec OTC] 20 mg tablet,delayed release (DR/EC) 20 mg PO DAILY Qty: 90 3RF Discontinued polyethylene glycol 3350 17 gram/dose powder 238 g PO ONCE Qty: 238 0RF Rx Instructions: take per colonoscopy instructions bisacodyl [Dulcolax (bisacodyl)] 5 mg tablet,delayed release (DR/EC) 5 mg PO ONCE Qty: 4 0RF Rx Instructions: take per colonoscopy instructions Discharge Instructions Additional Instructions: Pat, we were able to complete your colonoscopy today without any difficulty. The bumps that you feel around your anus are anal warts. They are contagious by way of direct physical contact, and sexual partners should be notified, and follow-up with her primary care doctors for examination. There are several lines of treatment for anal warts, but the recommended first-line therapy is a topical cream. I have provided a prescription for this. You will need to apply it every night at bedtime, leave it on overnight, then wake up, and wash it off with warm soapy water. I would like to see you in the office in about 2 months to see how they are progressing. With regards to the rest of the colonoscopy, I did find 3 polyps. I removed these all completely. They will be sent off for testing. When I have the results of the testing, I will notify you with regards to your next colonoscopy. 1. If tolerated, consume a soft, low fiber diet for 1-2 days. [address] Do not drive, drink alcohol, operate machinery, make critical decisions, or do activities that require coordination or balance for 24 hours. 3. Because air was put into your colon during the procedure, expelling air from your rectum (passing gas or farting) is normal. 4. You may not have a bowel movement for 1-3 days because of the colonoscopy prep. This is normal. 5. Go directly to the emergency room if you notice any of the following: Develop chills (warm to touch), or if you have a thermometer and your temperature is above 101 Difficulty breathing or difficultly swallowing Persistent vomiting Severe abdominal pain, other than gas cramps Severe chest pain Black, tarry stools Any bleeding ? exceeding one tablespoon 6. Call your physician if the site where your intravenous was started becomes red, swollen, painful, and warm to touch. 7. Your physician has reviewed your pre-procedure medications. Please continue to take those medications as previously ordered. You will be given specific information/education regarding any changes to your medications before leaving. Activity:: Activity as Tolerated Diet:: As Tolerated Discharge Orders Discharge Orders: Discharge Order (Routine); Ordered 03/12/23 Ordered By: Wolf Daniels DS: Diagnosis Discharge Diagnosis (1) Anal condyloma: Status: Acute
--- NOTE | 2023-03-12 19:30 | W.COLOREPORT ---
Date of service: 03/13/23 Time of Service: 09:34 Colonoscopy Report Date of procedure: 03/13/23 Pre-op diagnosis general: Screening colonoscopy Post-op diagnosis procedure note: other (Anal warts) Procedure: Colonoscopy Surgeon: Wolf Daniels Anesthesia Type: General:No Airway Estimated blood loss (mL): 0 Pathology: none sent Complications: None Disposition: same day Indications: Zac is a 43 year old man who needs a screening colonocsopy because of high polyp burden found on colonsocopy before. 10 Polyps were removed at that time. Prep: Miralax/Dulcolax Procedure Start Time: 08:57 Procedure End Time: 09:19 Retraction Time: 15 Findings: Anal condyloma Procedure Description: After the induction of monitored anesthetic care, and with the patient in left lateral decubitus position, I began by performing an external anorectal exam.? There are 2 areas of anal condyloma. She is about a centimeter and a half wide by about a centimeter long. There was no evidence of external hemorrhoids.? Next, I performed a digital rectal exam.? I did appreciate any abnormal findings.? Next, I advanced a colonoscope into the rectal vault.? I performed retroflexion.? I did not see signs of pathologic internal hemorrhoids.? There were 2 polyps in the lower portion of the rectum. Both were sessile and less than 0.25 cm. I removed both of these with cold forceps polypectomy. There was minimal bleeding. Similarly, there was another sessile polyp at the rectosigmoid junction. This was about 0.25 cm. This was also sessile and removed with cold forceps. There was minimal bleeding here.. Using insufflation, I then advanced the colonoscope beyond the rectal folds and into the sigmoid colon before advancing towards the cecum.? The scope was noted to be in the cecum by identification of the ileocecal valve and appendiceal orifice.? I then began withdrawing the colonoscope using repeated irrigation as necessary for full evaluation of the colonic mucosa. ?Once the scope was withdrawn to the level of the rectum, great care was taken to examine portions of the rectal folds.? The [place] bowel prep score was 3, 3, 3 from right to left. finally, the scope was withdrawn and the patient was brought to the same-day surgery recovery unit as the anesthetic wore off. ?The findings and instructions were shared with the patient prior to discharge.
[2023-03-13 07:42] VITALS: BP 124/85; PULSE 83; RESP 16; TEMP 36.2; O2SAT 98
--- NOTE | 2023-03-13 08:04 | W.ANESPRE ---
General Info Date of Service Date Performed: 03/13/23 Height: 5 ft 10.5 in Weight: 89.1 kg Body Mass Index (BMI): 27.8 Surgical Procedure: Operation Date: 03/13/23 09:50 Proposed Procedure Side Surgeon boone Daniels MD Meds Allergies and Home Medications Allergies Allergy/AdvReac Type Severity Reaction Status Date / Time No Known Allergies Allergy Verified 03/13/23 07:57 Home Medication Medication Instructions Recorded albuterol sulfate 90 mcg/actuation 2 puff inhalation Q4H PRN PRN 12/21/22 aerosol inhaler (Ventolin HFA) asthma #8.5 grams omeprazole magnesium 20 mg 20 mg PO DAILY #90 tabs 12/21/22 tablet,delayed release (Prilosec OTC) Current Visit Medications: Current Medications Generic Name Dose Route Start Last Admin Trade Name Freq PRN Reason Stop Dose Admin Hyoscyamine Sulfate 0.125 mg 03/12/23 19:31 Hyoscyamine 0.125 Mg Sl/Oral/Chew SL 04/11/23 19:30 DIRECTED PRN Ringer's Solution 1,000 mls @ 80 mls/hr 03/13/23 06:00 IV 04/09/23 23:59 [facility] IV Miscellaneous Supplies 1 each 03/13/23 06:00 Iv Access IV 04/09/23 23:59 DIRECTED MICHEL Ondansetron HCl 4 mg 03/12/23 19:31 Ondansetron 4 Mg/2 Ml Vial IVP 04/11/23 19:30 Q4H PRN PRN Nausea / Vomiting Sodium Chloride 0 ml 03/13/23 06:00 Normal Saline Flush 10 Ml Syr IV 04/09/23 23:59 PRN PRN Sodium Chloride 0 ml 03/13/23 06:00 Normal Saline 10 Ml Vial IJ 04/09/23 23:59 DIRECTED PRN Sterile Water 0 ml 03/13/23 06:00 Water,Injection,Sterile 10 Ml Vial IJ 04/09/23 23:59 DIRECTED PRN PFSH Active Problems Active Problems: Problem Status Onset Code Family history of lung cancer Z80.1 Tinea versicolor B36.0 Smoker F17.200 Diverticula of colon K57.30 Acute diarrhea R19.7 Diastasis recti M62.08 Umbilical hernia K42.9 GERD (gastroesophageal reflux disease) K21.9 Asthma J45.909 Medical History Medical History Diverticulitis Hyperplastic colon polyp Removed during scope. Colon wall thickening Medical History Comments:: pt reports he was somewhat aware with last colonoscopy and remembers seeing video while in the room. Surgical History Surgical History Fracture, ribs s/p rib plating History of colonoscopy with polypectomy (~01/26/21) S/P knee surgery Tobacco Smoking/Tobacco Use Status: Current every day Tobacco Type: cigarettes Smoking cigarettes per day: 10 Passive smoking exposure: Yes Second hand exposure: Yes Alcohol Alcohol Intake: current Alcohol intake frequency: a few times a week Alcohol type: beer and hard liquor Substance Use Substance use: Daily Substance use type: marijuana Details: smoke and gummies. 03/10 last THC use 03/10 last alcohol use Vital Signs and Lab Results Vital Signs Most Recent Vital Signs in EMR: Most Recent Vital Signs Temp Pulse Resp BP Pulse Ox 36.2 C L 83 16 124/85 98 03/13/23 07:42 03/13/23 07:42 03/13/23 07:42 03/13/23 07:42 03/13/23 07:42 Lab Results Blood Type / Crossmatch: No Data to Display Complete Blood Count: No Data to Display Complete Metabolic Panel: Creatinine 0.9 mg/dL (0.70-1.30) 02/17/23 08:03 Est GFR (CKD-EPI 2020) 107.33 (mL/min/1.73m2) 02/17/23 08:03 Liver Function Panel: No Data to Display Coagulation Panel: No Data to Display Cardiac Panel: No Data to Display Arterial Blood Gas: No Data to Display Venous Blood Gas: No Data to Display Pancreas Panel: No Data to Display Thyroid Panel: No Data to Display Infectious Disease: No Data to Display Blood Cultures: No Data to Display Toxicology Panel: No Data to Display Imaging and Studies Imaging and Studies Study information below may be from another EMR and interpreted by another provider. Please see original notes in EMR for more complete details. EKG Summary: 02/19/22: sinus tach. Pulmonary Function Summary: Impression Moderate airflow obstruction with a normal diffusion. This may be consistent with COPD (chronic bronchitis). Clinical Correlation therefore is recommended. 09/06/22 Anesthesia Assessment and Plan Anesthesia History Personal History: No History of Anesthesia Complications Family History: No Family History of Anesthesia Complications Exercise Tolerance Exercise Tolerance: Metabolic Equivalents>4 Cardiac & Pulmonary Exam Cardiac Exam: Normal S1/S2 Heart Sounds Pulmonary Exam: Clear Bilateral Breath Sounds Implantable Cardiac Device Does patient have a Pacemaker or an ICD?: No Airway Exam Known Difficult Airway: No Mallampati Class: 1 Mouth Opening: Normal (> 3cm) Thyromental Distance: Greater than 3 cm Neck Range of Motion: Full ROM Neck Circumference: Normal Teeth Condition: Normal Dentition ASA Classification ASA Score: ASA 2 Emergency Case?: No NPO Status NPO Status: NPO Clears >2 hours, Solids >8 hours Anesthesia Plan Resuscitation Status: Full Code Anesthesia Technique: General Anesthesia Airway Planned: Natural Airway Monitors Used: Standard Monitors
[2023-03-13] MEDS: Lactated Ringers 1,000 ML 80 ML IV (08:10)
[2023-03-13 08:34] VITALS: BMI 27.8
--- NOTE | 2023-03-13 09:01 | BOWEL_PTH ---
PATIENT: Zac Mathews LOC: [facility] U#:[id number] AGE/SX: 43/M ROOM: RE03/13/[address]: Wolf Daniels MD : 1980 BED: DIS: 03/13/2023 SPEC #: [id number] RECD: 03/13/23 12:39 STATUS: ARNOLD RE #: [id number] LISA: 03/13/23 09:[address]: Wolf Daniels DEPT: Surgical Specimen RECD BY: Uzma Freedman ENTERED: 03/13/23 12:39 SP TYPE: Bowel OTHR DR: Kemal Menchaca, CERTIFIED SURGICAL FIRST ASSISTANT Tissues: 1 - BIOPSY BOWEL 2 - BIOPSY BOWEL Procedures: GROSS AND MICRO LEVEL 4 Comments: [id number]
[2023-03-13 09:24] VITALS: BP 126/86; PULSE 83; RESP 18; TEMP 36.4; O2SAT 95
[2023-03-13 09:42] VITALS: BP 115/92; PULSE 83; RESP 18; TEMP 36.6; O2SAT 97
--- NOTE | 2023-03-13 10:18 | W.ANESPOSTOP ---
Postoperative Evaluation Date, Time and Location Date Performed: 03/13/23 Time Performed: 09:46 Patient Location: Day Surgery Unit Vital Signs Most Recent Imported Vital Signs: Most Recent Vital Signs Temp Pulse Resp BP Pulse Ox 36.6 C 83 18 115/92 H 97 03/13/23 09:42 03/13/23 09:42 03/13/23 09:42 03/13/23 09:42 03/13/23 09:42 Pain Score Most Recent Pain Score: Most Recent Pain Score Pain Level 0 03/13/23 09:42 Assessment Mental Status: Awake (Alert & Oriented to Patient Baseline) Airway and Respiratory Function: Patent airway with normal (patient baseline) respiratory exam Cardiovascular Function: Hemodynamically Stable Hydration Status: Adequately Hydrated Nausea & Vomiting: No Nausea or Vomiting Pain: Pt. Denies Any Pain Peripheral Nerve Block: Patient did not receive a nerve block
== END 2023-03-13 10:00 | disposition home or self-care (01) ==
LOC: SUR 07:38
PROVIDERS: PCP Nurse Practitioner Family; Visit Provider Surgery
PROC: 0DJD8ZZ Inspection of Lower Intestinal Tract, Via Natural or Artificial Opening Endoscopic (ICD-10-PCS; CPT 45378; principal; 2023-03-13 09:45)
DX: Z12.11 Encounter for screening for malignant neoplasm of colon (principal); A63.0 Anogenital (venereal) warts; K63.5 Polyp of colon; F17.200 Nicotine dependence, unspecified, uncomplicated; K21.9 Gastro-esophageal reflux disease without esophagitis
CPT/HCPCS: 45380; 88305; J2001

== ENCOUNTER → 2023-10-09 03:31 | Outpatient (CLI) | payer SELFPAY ==
--- NOTE | 2023-10-09 | DI.RAD_ITS ---
Exam(s) XR CHEST 2V PA LATERAL EXAM: XR CHEST 2V PA LATERAL CLINICAL HISTORY: SMOKER, CHEST DISCOMFORT, TECHNIQUE: 2D digital imaging was performed. Two views. COMPARISON: CR XR PORTABLE CHEST AP from 02/24/[address] CHEST WO from 08/15/2022 FINDINGS: HEART: Normal size. Aorta: Not dilated. PULMONARY VASCULATURE: Normal. LUNGS: Emphysematous changes. Scarring at left lung base. No infiltrate. No pulmonary edema. PLEURAL SPACE: No pleural effusion or pneumothorax. BONE:fixation plates along left ribs. Soft tissues: Unremarkable. IMPRESSION: No acute abnormality. DATA REPOSITORY: RADIATION DOSE DELIVERED:
== END ==
PROVIDERS: PCP Nurse Practitioner Family; Visit Provider Nurse Practitioner Family
DX: R07.9 Chest pain, unspecified (principal); F17.210 Nicotine dependence, cigarettes, uncomplicated
CPT/HCPCS: 71046

== ENCOUNTER 2024-01-09 02:08 | Outpatient (CLI) | payer BC, SELFPAY ==
[2024-01-09 12:38] LABS: Calculated LDL 124 mg/dL (<100); Cholesterol 195 mg/dL (<200); HDL Cholesterol 57 mg/dL (40-60); Triglyceride 71 mg/dL (<150)
[2024-01-09 13:16] LABS: Hemoglobin A1C 5.2 % (<5.7)
== END 2024-01-09 02:09 | disposition home or self-care (01) ==
LOC: LOS 02:08
PROVIDERS: PCP Nurse Practitioner Family; Visit Provider Nurse Practitioner Family
DX: Z13.220 Encounter for screening for lipoid disorders (principal); Z13.1 Encounter for screening for diabetes mellitus
CPT/HCPCS: 36415; 80061; 83036

== ENCOUNTER 2025-02-18 02:46 | Outpatient (CLI) | payer OTHER, SELFPAY ==
[2025-02-18 15:37] LABS: Hemoglobin A1C 5.2 % (<5.7)
[2025-02-18 15:58] LABS: Iron 150 ug/dL (65-175)
[2025-02-18 16:31] LABS: Cholesterol 178 mg/dL (<200); TSH (W/Ref FT4) 0.88 uIU/mL (0.36-3.74); Triglyceride 247 mg/dL (<150); Vitamin B12 650 pg/mL (193-986)
[2025-02-19 04:39] LABS: Calculated LDL 85 mg/dL (<100); HDL Cholesterol 44 mg/dL (>or=40)
== END 2025-02-18 02:47 | disposition home or self-care (01) ==
LOC: LBO 02:47
PROVIDERS: PCP Nurse Practitioner Family; Visit Provider Nurse Practitioner Family
DX: Z13.1 Encounter for screening for diabetes mellitus (principal); D50.9 Iron deficiency anemia, unspecified; Z13.220 Encounter for screening for lipoid disorders; E03.9 Hypothyroidism, unspecified
CPT/HCPCS: 36415; 80061; 82607; 83036; 83540; 84443